=== PATIENT | female | born 1985 | race African-American/Black ===

== ENCOUNTER 2025-01-30 10:24 | Outpatient (CLI) | payer OTHER, SELFPAY ==
--- NOTE | ~2025-01-30 | XR_ITS ---
XR hand RT 2V 01/30/2025 11:15 Indication: Lupus. Glomerular disease. Procedure: 2 views right hand Comparison: No prior studies for comparison. Findings: There is anatomic alignment of the right hand. There is a foreign body along the ventral so ft tissues of the third middle phalanx. No fracture or traumatic malalignment. No erosive changes. Impression: 1: Small foreign body ventral soft tissues right third middle phalanx. Reviewed, dictated and finalized at location A. Impression: 1: Small foreign body ventral soft tissues right third middle phalanx.
--- NOTE | ~2025-01-30 | XR_ITS ---
CHEST RADIOGRAPH, PA AND LATERAL CLINICAL HISTORY: Systemic lupus erythematosus w glomerular disease . COMPARISON: None available TECHNIQUE: PA and lateral views of the chest. FINDINGS The cardiomediastinal silhouette is unremarkable. The lungs are clear. Visualized osseous structures and soft tissues are unremarkable. IMPRESSION: No focal infiltrate or effusion. Reviewed, dictated and finalized at location A.
--- NOTE | ~2025-01-30 | XR_ITS ---
XR hand LT 2V 01/30/2025 11:15 INDICATION: Left hand pain PROCEDURE: 2 views left hand COMPARISON: No prior studies for comparison. FINDINGS: Fracture, dislocation or subluxation is not identified. The soft tissues appear within norm al limits. There is a small radiodensity along the ventral aspect of the second distal phalanx on the lateral view, compatible with foreign body. IMPRESSION: 1: Small foreign body involving the soft tissues ventral to the second distal phalanx seen on lateral view. Reviewed, dictated and finalized at location A. IMPRESSION: 1: Small foreign body involving the soft tissues ventral to the second distal p halanx seen on lateral view.
--- NOTE | ~2025-01-30 | XR_ITS ---
XR lumbar spine 2-3V 01/30/2025 11:15 Indication: Lupus, Renal disease. Procedure: 3 views lumbar spine Comparison: No prior studies for comparison. Findings: Vertebral body heights are maintained. Pedicles intact. There is dextroscoliosis. No fractu re or traumatic malalignment. No evidence for spondylolisthesis. No significant disc narrowing. Impression: 1: Dextroscoliosis. Reviewed, dictated and finalized at location A. Impression: 1: Dextroscoliosis.
== END 2025-01-30 10:25 | disposition home or self-care (01) ==
LOC: MICIMG 10:30
PROVIDERS: PCP Physician Assistant Medical; Visit Provider Physician Assistant Medical
DX: M32.14 Glomerular disease in systemic lupus erythematosus (principal); M41.9 Scoliosis, unspecified; M79.5 Residual foreign body in soft tissue
CPT/HCPCS: 71046; 72100; 73120

== ENCOUNTER 2025-01-30 11:00 | Emergency (ER) | payer OTHER, SELFPAY ==
[2025-01-30] VITALS (7 sets, daily range): BP systolic 103–120; BP diastolic 64–80; PULSE 74–81; RESP 17–18; TEMP 36.9–37.1; O2SAT 98–100
--- OUTSIDE RECORDS SUMMARY | 2025-01-30 11:02 | XMS_ITS ---
Author Organization [facility] Address [address] [place], [place] [id number] Care Team Providers Care Investor Name Role Phone PALLAVI VICTOR Primary Care Provider [phone] Zeeshan Sanchez Unavailable Unavailable Social History Sex Assigned At : Social History Observation Description Sex Assigned At Female Encounters Encounter Location Date Provider Diagnosis [facility] [address] [place], [place] [id number] 10/16/2024 PALLAVI VICTOR Plan Of Treatment No Information Progress Notes * Amanda LING LDOB:1984 (39 yo F)Acc No.[id number]:10/16/2024 Progress Notes Patient: Amanda CARR Appointment Provider: Marcella VICTOR NP :1985 A ge:38 Y S ex:Female Date:10/16/2024 Address:[address] [id number] Subjective: * Chief Complaints: * * Medical History: * Ocular Surgical History: Objective: * Vitals: Vision: Spectacle Rx: Contact Lens: Eye Examination: Special Tests: Assessment: Plan: * Treatment: Care Plan: * Problems: * Billing Information: * Visit Code: * Procedure Codes: * Electronic signature of CRICKET SAVAEG on 01/30/2025 at 11:02 AM CDT Sign off status: Pending * Appointment Provider: Marcella VICTOR NP Date: 12/17/2023 Generated for Lisa michelle/Nusrat/Jose Miguel on: 0 01/30/2025 11:02 AM CDT
--- OUTSIDE RECORDS SUMMARY | 2025-01-30 11:02 | XMS_ITS ---
Author Organization [facility] Address [address] [place] [id number] Care Team Providers Care Locksmith Name Role Phone KAYLEIGH PALLAVI Primary Care Provider Zeeshan Sanchez Unavailable Unavailable Reason For Referral Reason h/o SLE: EVAL AND [place] Diagnosis 1 Microcytic anemia (D 50.9) Diagnosis 2 Leukopenia, unspecif ied type (D72.819) [facility] Referring Provider First Name PALLAVI Referring Provider Last Name KAYLEIGH Referring Provider Speciality Family Med icine Referred Provider Specialty Emergency Me dicine General Notes Constance Lisa 2023 01:25:42 PM >Pt went to ER Referral Priority Stat REASON FOR VISIT Critical labs Social History Sex Assigned At : Social History Observation Description Sex Assigned At Female Problems Problem Type SNOMED Code ICD Code Onset Dates Problem Status W/U Status Risk Notes Problem Microcytic anemia (184056608) Microcytic anemia (D50.9) Active confirmed Problem Leukopenia (18073222) Leukopenia, unspecified type (D72.819) Active confirmed Encounters Encounter Location Date Provider Diagnosis [facility] [address] [place] [id number] 07/14/2024 PALLAVI VICTOR Microcytic anemia D5 0.9 ; Leukopenia, unspecified type D72.819 and Systemic lupus erythematosus, unspecified SLE type, unspecified organ involvement status M32.9 Assessments Encounter Date Diagnosis (ICD Code) Assessment Notes Treatment Notes Treatment Clinical Notes Section Notes 07/14/2024 Microcytic anemia (ICD-10 - D50.9) 07/14/2024 Leukopenia, unspecified type (ICD-10 - D72.819) 07/14/2024 Systemic lupus erythematosus, unspecified SLE type, unspecified organ involvement status (ICD-10 - M32.9) Plan Of Treatment Referrals Referral Date Details 07/14/2024 07/14/2024, h/o SLE: EVAL AND TX Next Appt Details Follow Up: To ER now, 911 if needed. F/U after , w papers., Reason: Outpt Rheum referral already ordered... Progress Notes * Amanda LING LDOB:1984 (38 yo F)Acc No.[id number]:07/14/2024 Patient: Amanda CARR :1985 A ge:38 Y S ex:Female Address:[address] [place] [address] , [place], [address] Subjective: * Chief Complaints: * C ritical labs * HPI: * : Lab called: Hgb 6.9, MCV low, WBC 1.64 Pt c/o persistent fatigue. Pt c/o similar issues early in dx of SLE, improved w infusions... * Medical History: * Surgical History: * Hospitalization/Major Diagno stic Procedure: * Medications: Objective: * Vitals: * Examination: G eneral Examination: GENERAL APPEARANCE: N AD, over the phone. L UNGS: ? Respirations even and unlabored. * Physical Examination: Assessment: * Assessment: 1. M icrocytic anemia - D50.9 (Primary) 2 . L eukopenia, unspecified type - D72.819 3 . S ystemic lupus erythematosus, unspecified SLE type, unspecified organ involvement status - M32.9 Plan: * Treatment: 2. L eukopenia, unspecified type Referral To:Emergency Medicine Reason:h/o SLE: EVAL AND TX * Procedure Codes: * Follow Up: T o ER now, 911 if needed. F/U after , w papers. (Reason: Outpt Rheum referral already ordered...) * true * Date: Generated for Lisa michelle/Nusrat/eTransmitting on: 0 01/30/2025 11:02 AM CDT History and Physical Notes * HPI (History of Present Illness) Category Sub-Category Detail Notes Category Not es Lab called: Hgb 6.9, MCV low, WBC 1.64 Pt c/o persistent fatigue. Pt c/o similar issues early in dx of SLE, improved w infusions... Examination Category Sub-Category Detail Notes Category Not es General Examination GENERAL APPEARANCE: NAD, over the phone LUNGS: Respirations even an d unlabored Consultation Request Notes Referral Date Referring Provider Referred Provider Not es 07/14/2024 PALLAVI VICTOR , h/o SLE: HOD[place] L AND [place]
--- OUTSIDE RECORDS SUMMARY | 2025-01-30 11:02 | XMS_ITS | Encounter Summary ---
Author Organization [facility] Address [facility] [facility] [address] Care Team Providers Care Telehealth Nurse Educator Name Role Phone Unavailable Primary Care Provider Unavailabl e Reason for Referral * Consultation (Routine) - Closed Specialty Diagnoses / Procedures Referred By Contac t Referred To Contact Rheumatology Diagnoses Systemic lupus erythematosus, unspecified SLE type, unspecified organ involvement status ([facility]) Lena Briggs PA-C [address] [place] [phone] [facility] [address] [place] [address] Referral ID Status Reason Start Date Expiration Date V isits Requested Visits Authorized [id number] Closed Specialty Services Required 09/28/2024 09/28/2025 1 1 [employer] Encounter Details Date Type Department Care Team (Latest Contact Info) Description 09/28/2024 Transcribe Orders [facility] - Centralized Scheduling [address] [place] [id number] Lena Briggs PA-C [address] [place] [phone] Systemic lupus erythematosus, unspecified SLE type, unspecified organ involvement status Social History Tobacco Use Types Packs/Day Years Used Date Smoking Tobacco: Never Assessed Sex and Gender Information Value Date Recorded Sex Assigned at Not on file Gender Identity Not on file Sexual Orientation Not on file documented as of this encounter Plan of Treatment Scheduled Referrals Name Type Priority Associated Diagnoses Order Schedule AMB REFERRAL TO RHEUMATOLOGY Outpatient Referral Routine Systemic lupus erythematosus, unspecified SLE type, unspecified organ involvement status 1 Occurrences starting 09/28/2024 until 09/28/2025 documented as of this encounter Visit Diagnoses Diagnosis Systemic lupus erythematosus, unspecified SLE type, unspecified organ involvement status (HCC)- Primary documented in this encounter
--- OUTSIDE RECORDS SUMMARY | 2025-01-30 11:02 | XMS_ITS | Clinical Summary ---
Author Organization [facility] Address [address] [facility] [place] [address] Care Team Providers Care Human Resources Officer Name Role Phone Unavailable Primary Care Provider Unavailabl e Source Comments [facility],non-owned Affiliates and Associated Physician Practices is amultiple site organization consisting of ambulatory clinics and hospital sitesin [place], [place], [place] and [place]. This disclosure is being madepursuant to the Care Everywhere program and may not contain all information available regarding this patient. 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 Pulse - - Temperature - - Respiratory Rate - - Oxygen Saturation - - Inhaled Oxygen Concentration - - Weight - - Height - - Body Mass Index - - Plan of Treatment Health Maintenance Due Date Last Done Comments PAP SMEAR 1985 HIV SCREENING 2001 HEPATITIS C SCREENING 10/20/2004 DTAP/TDAP/TD VACCINES (1 - Tdap) 2005 HEPATITIS B VACCINE (1 of 3 - 19+ 3-dose series) 2005 COVID-19 VACCINE ( - 2023-2 5 season) 2024 INFLUENZA VACCINE (#1) 2024 DEPRESSION SCREENING 11/04/2024 ZOSTER VACCINE (1 of 2) 2036 HIB VACCINE Aged Out No longer eligi ble based on patient's age to complete this topic HPV VACCINE Aged Out No longer eligi ble based on patient's age to complete this topic MENINGOCOCCAL (Group B) VACC INE SHARED DECISION-MAKING Aged Out No longer eligibl e based on patient's age to complete this topic MENINGOCOCCAL GROUPS A/C/Y/W VACCINE Aged Out No longer eligible b ased on patient's age to complete this topic PNEUMOCOCCAL VACCINE Aged Out No long er eligible based on patient's age to complete this topic Guarantor Name Account Type Relation to Patient Date of Phone Billing Address SHANICE LING Personal/Famil y 1985 [facility], [address] [place] [address]
--- OUTSIDE RECORDS SUMMARY | 2025-01-30 11:03 | XMS_ITS | Patient Health Record ---
Author Organization [facility] Address [address] [place], [place] [address] Care Team Providers Care Electric Appliance Installer Name Role Phone MARY VICTOR Primary Care Provider [phone] Zeeshan Betancourt Unavailable Unavailable Zeeshan Betancourt Unavailable [phone] Allergies Allergen (clinical drug ingredient) Drug/Non Drug Allergy documented on EMR Reaction Allergy Type Onset Date Status Roche Peppers (uncoded) Unknown Allergy Active Mushrooms (uncoded) Unknown Allergy Active Pinapples (uncoded) Unknown Allergy Active Results Component Value Reference Range Notes CBC (H/H, RBC, INDICES, WBC, PLT) Reviewed date:08/23/2024 08:50:24 PM Interpretation: Performing Lab: [facility], [address] [place] [id number], Phone - [phone] Notes/Report: Testing performed at: [] [address], [address], , Tunnel Elastic Operator Lockstitch: Titi Guillaume, PhD Critical Result called to dr ayala on 07/15/2024 9:30 AM by Refugio Valle. Results were read back to caller. (WBC, Hemoglobin) WBC 1.8 3.4-10.8 x10E3/uL RBC 3.12 3.77-5.28 x10E6/uL Few tear drops. Hemoglobin 6.9 11.1-15.9 g/dL Hematocrit 24.9 34.0-46.6 % MCV 80 79-97 fL MCH 22.1 26.6-33.0 pg MCHC 27.7 31.5-35.7 g/dL RDW 18.0 11.7-15.4 % Platelets 151 150-450 x10E3/uL Neutrophils 46 Not Estab. % Lymphs 36 Not Estab. % Monocytes 15 Not Estab. % Eos 1 Not Estab. % Basos 1 Not Estab. % Neutrophils (Absolute) 0.8 1.4-7.0 x10E3/uL Lymphs (Absolute) 0.6 0.7-3.1 x10E3/uL Monocytes(Absolute) 0.3 0.1-0.9 x10E3/uL Eos (Absolute) 0.0 0.0-0.4 x10E3/uL Baso (Absolute) 0.0 0.0-0.2 x10E3/uL Immature Granulocytes 1 Not Estab. % Immature Grans (Abs) 0.0 0.0-0.1 x10E3/uL Hematology Comments: Note: Verifie d by microscopic examination. CBC W/AUTO DIFF Reviewed date:08/23/2024 08:49:33 PM Interpretation: Performing Lab:[facility], [facility] ([facility]), [address] [place], [place] [id number], Phone - [phone] Notes/Report: scan slide preliminary report Critical Result called to dr betancourt on 07/14/2024 10:45 AM by Refugio Valle. Results were read back to caller. verified by repeat analysis. (WBC, HGB, HCT) Test Performed at [facility], [address], [place] [address]. x2231. Business Affairs Manager: Taya Deloen MD. CLIA# [id number] This order was split into 3 orders: [id number] (Lipid Profile,CBC W/AUTO DIFF ,CMP), [id number] (Urinalysis w/ Microscopy), [id number] (MICROALBUMIN, RANDOM URINE (W/CREA),C-REACTIVE PROTEIN,DANETTE SCR, IFA W/REFL TITER/ PATTERN/LUPUS PNL 1,C3, C4, COMPLEMENT CH50) White blood cell count 1.64 3.80-10.80 K/uL Red blood cell count 3.03 3.80-5.10 M/uL Hemoglobin 6.9 11.7-15.5 g/dL Hematocrit 23.0 35.0-45.0 % Mean Cell Volume 76 80-100 fL Mean Corpuscular Hemoglobin 22.8 27.0-33.0 pg Mean Corpuscular Hemoglobin Concentration 30.0 32.0-36.0 % Red Cell Distribution Width 19.1 11.0-15.0 % Platelet Count 136 130-400 K/uL Mean Platelet Volume 11.6 7.4-11.5 fL Neutrophil # 0.8 2.0-6.9 K/uL Lymphocyte # 0.6 0.6-3.4 K/uL Monocyte # 0.3 0.0-0.9 K/uL Eosinophil # 0.01 0.00-0.70 K/uL Basophil # 0.010 0.000-0.200 K/uL Neutrophil % 47.5 37.0-80.0 % Lymphocyte% 34.8 10.0-50.0 % Monocyte % 15.9 0.0-12.0 % Eosinophil % 0.6 0.0-10.0 % Basophil % 0.6 0.0-3.0 % CMP Reviewed date:08/23/2024 08:50:58 PM Interpretation: [facility] [address], [place] [id number], Phone - [phone] Notes/Report: Test Performed at [facility], [address], [place] [address]. x2231. Business Affairs Manager: Taya Deleon MD. CLIA# [id number] This order was split into 3 orders: [id number] (Lipid Profile,CBC W/AUTO DIFF ,CMP), [id number] (Urinalysis w/ Microscopy), [id number] (MICROALBUMIN, RANDOM URINE (W/CREA),C-REACTIVE PROTEIN,DANETTE SCR, IFA W/REFL TITER/ PATTERN/LUPUS PNL 1,C3, C4, COMPLEMENT CH50) Test Performed at [facility], [address], [place] [address]. x2231. Business Affairs Manager: Taya Deleon MD. CLIA# [id number] Test Performed at [facility], [address], [place] [address]. x2231. Business Affairs Manager: Taya Deleon MD. CLIA# [id number] Lactate Dehydrogenase 196 125-250 U/L Carbon Dioxide Alinity 16 20-31 mmol/L Albumin Alinity 3.9 3.2-5.4 g/dL Alkaline Phosphatase Alinity 78 40-125 U/L Alanine Aminotransferase Alinity 10 0-72 U/L Aspartate Aminotransferase Alinity 18 5-34 U/L Calcium Alinity 8.5 8.4-10.6 mg/dL Chloride Alinity 113 95-107 mmol/L Creatinine Alinity 1.14 0.70-1.25 mg/dL Glucose Alinity 78 55-110 mg/dL Urea Nitrogen Alinity 10.0 6.0-25.0 mg/dL Total Protein Alinity 8.1 5.8-8.5 g/dL GLOBULIN Alinity 4.20 1.50-4.50 Sodium Alinity 139 136-145 mmol/L Potassium Alinity 3.6 3.6-5.1 mmol/L BUN/CREAT RATIO Alinity 8.77 5.00-20.00 EGFR-AA Alinity 65 59-120 120ml/min/1.73m2 EGFR Alinity 54 59-120 120ml/min/1.73m2 Non Total Bilirubin Alinity 0.5 0.1-12.0 mg/dL Urinalysis w/ Microscopy Reviewed date:08/21/2024 01:28:23 PM Interpretation: Performing Lab:[facility], [facility] ([facility]), [address] [place], [place] [id number], Phone - [phone] Notes/Report: Test Performed at [facility], [address], [place] [address]. x2231. Business Affairs Manager: Taya Deleon MD. CLIA# [id number] This order was split into 3 orders: [id number] (Lipid Profile,CBC W/AUTO DIFF ,CMP), [id number] (Urinalysis w/ Microscopy), [id number] (MICROALBUMIN, RANDOM URINE (W/CREA),C-REACTIVE PROTEIN,DANETTE SCR, IFA W/REFL TITER/ PATTERN/LUPUS PNL 1,C3, C4, COMPLEMENT CH50) Urine Color Yellow Colorless;Yellow ;Light Yellow;Dark Yellow;Mary Urine Clarity Clear Clear;Hazy Urine pH 6.5 5.0;5.5;6.0;6.5; 7.0;7. 5 Urine Glucose Negative Negative Urine Bilirubin Negative Negative Urine Ketones Negative Negative Urine Blood Negative Negative Urine Protein Trace Negative Urine Urobilinogen Normal Normal;3.2 um ol/L;16 umol/L Urine Nitrite Negative Negative Urine Leukocytes Negative Negative Urine WBC 3-5 0-3;3-5 Urine Epithelial Cells Mod. Negative;0 Urine Bacteria Occ. Negative;0;None Seen Trichomonas, Wet Prep Negative Negative Urine Specific [place] 1.020 1.010;1.0 15;1.020;1.02 5;>=1.030 C-REACTIVE PROTEIN Reviewed date:08/21/2024 01:28:37 PM Interpretation: Performing Lab:[facility], [address] [facility] [address], [place], [place] [address], Phone - [phone] Notes/Report: TESTING PERFORMED AT: [] [facility], [address] [place] [address], [address], PHONE: [phone], SUPERVISOR BUFFING AND PASTING: TITI GUILLAUME, PHD This order was split into 3 orders: [id number] (Lipid Profile,CBC W/AUTO DIFF ,CMP), [id number] (Urinalysis w/ Microscopy), [id number] (MICROALBUMIN, RANDOM URINE (W/CREA),C-REACTIVE PROTEIN,DANETTE SCR, IFA W/REFL TITER/ PATTERN/LUPUS PNL 1,C3, C4, COMPLEMENT CH50) C-REACTIVE PROTEIN, QUANT <1 0-10 MG/L C3, C4, COMPLEMENT CH50 Reviewed date:08/23/2024 08:49:40 PM Interpretation: Performing Lab:[facility], [address], [place], [place] [address], Phone - [phone] Notes/Report: TESTING PERFORMED AT: [] [address], [address], PHONE: [phone], SUPERVISOR BUFFING AND PASTING: TITI GUILLAUME, PHD This order was split into 3 orders: [id number] (Lipid Profile,CBC W/AUTO DIFF ,CMP), [id number] (Urinalysis w/ Microscopy), [id number] (MICROALBUMIN, RANDOM URINE (W/CREA),C-REACTIVE PROTEIN,DANETTE SCR, IFA W/REFL TITER/ PATTERN/LUPUS PNL 1,C3, C4, COMPLEMENT CH50) COMPLEMENT C3, SERUM 57 82-167 MG/DL COMPLEMENT C4, SERUM 7 12-38 MG/DL COMPLEMENT, TOTAL (CH50) 19 >41 U/ML AGE MALE FEMALE 1 - 30 DAYS NOT ESTAB. NOT ESTAB. 31 DAYS - 6 MONTHS >32 >20 7 MONTHS - 17 YEARS >39 >39 >17 YEARS >41 >41 NOTE: THE ADULT ( >17 YEARS ) REFERENCE INTERVAL RANGE IS USED TO FLAG ABNORMALS ON THIS REPORT. IF THE PATIENT IS 17 YEARS OLD OR YOUNGER, USE THE TABLE ABOVE TO DETERMINE OUT OF RANGE VALUES. MICROALBUMIN, RANDOM URINE ( W/CREA) Reviewed date:08/21/2024 01:28:11 PM Interpretation: Performing Lab:[facility], [address] [facility] [place], [place] [id number], Phone - [phone] Notes/Report: TESTING PERFORMED AT: [] [address], [address], PHONE: [phone], SUPERVISOR BUFFING AND PASTING: TITI GUILLAUME, PHD This order was split into 3 orders: [id number] (Lipid Profile,CBC W/AUTO DIFF ,CMP), [id number] (Urinalysis w/ Microscopy), [id number] (MICROALBUMIN, RANDOM URINE (W/CREA),C-REACTIVE PROTEIN,DANETTE SCR, IFA W/REFL TITER/ PATTERN/LUPUS PNL 1,C3, C4, COMPLEMENT CH50) CREATININE, URINE 130.0 NOT ESTAB. MG/DL ALBUMIN, URINE 68.5 NOT ESTAB. UG/ML ALB/CREAT RATIO 53 0-29 MG/G CREAT NORMAL: 0 - 29 MODERATELY INCREASED: 30 - 300 SEVERELY INCREASED: >300 DANETTE SCR, IFA W/REFL TITER/ P ATTERN/LUPUS PNL 1 Reviewed date:08/23/2024 08:49:48 PM Interpretation: Performing Lab:[facility], [address] [facility] [address], [place], [place] [address], Phone - [phone] Notes/Report: TESTING PERFORMED AT: [] [facility], [address] [place], [address], PHONE: [phone], SUPERVISOR BUFFING AND PASTING: TITI GUILLAUME, PHD This order was split into 3 orders: [id number] (Lipid Profile,CBC W/AUTO DIFF ,CMP), [id number] (Urinalysis w/ Microscopy), [id number] (MICROALBUMIN, RANDOM URINE (W/CREA),C-REACTIVE PROTEIN,DANETTE SCR, IFA W/REFL TITER/ PATTERN/LUPUS PNL 1,C3, C4, COMPLEMENT CH50) DANETTE DIRECT POSITIVE NEGATIVE ANTI-DNA (DS) AB QN 1 0-9 IU/ML NEGATIVE <5 EQUIVOCAL 5 - 9 POSITIVE >9 MCKEON ANTIBODIES <0.2 0.0-0.9 AI ANTICHROMATIN ANTIBODIES 2.7 0.0-0.9 AI Lipid Profile Reviewed date:08/21/2024 01:29:02 PM Interpretation: Performing Lab:[facility] ([facility]), [address] [place], [place] [id number], Phone - [phone] Notes/Report: Test Performed at [facility], [address], [place] [address]. x2231. Business Affairs Manager: Taya Deleon MD. CLIA# [id number] This order was split into 3 orders: [id number] (Lipid Profile,CBC W/AUTO DIFF ,CMP), [id number] (Urinalysis w/ Microscopy), [id number] (MICROALBUMIN, RANDOM URINE (W/CREA),C-REACTIVE PROTEIN,DANETTE SCR, IFA W/REFL TITER/ PATTERN/LUPUS PNL 1,C3, C4, COMPLEMENT CH50) Test Performed at [facility], [address], [place] [address]. x2231. Business Affairs Manager: Taya Deleon MD. CLIA# [id number] Test Performed at [facility], [address], [place] [address]. x2231. Business Affairs Manager: Taya Deleon MD. CLIA# [id number] Direct LDL Cholesterol 76.00 60.00-130.00 mg/dl Cholesterol Alinity 123 100-195 mg/dL ULTRA HIGH DENSITY LIPOPTOTE IN Alinity 33 36-76 mg/dL CHOL/UHDL RATIO Alinity 3.73 0.00-4.90 Triglycerides Alinity 131 40-136 mg/dL Reason For Referral Reason Pt new to [place], off of infusions-- sx flaring: eval and tx Diagnosis 1 Systemic lupus eryth ematosus, unspecified SLE type, unspecified organ involvement status (M32.9) Diagnosis 2 Discoid lupus (L93.0 ) Diagnosis 3 Proteinuria, unspeci fied type (R80.9) Diagnosis 4 Polyarthritis (M13.0 ) Referral Organization [facility] Referring Provider First Name Zeeshan Referring Provider Last Name Daniel Referring Provider Speciality Internal M edicine Referred Organization [facility] Referred Address [address] [place], [place], Referred Provider Specialty Rheumatology General Notes Constance Lisa 2023 09:26:31 AM >Faxed rheuma refer w notes to [facility] @ [phone] and [facility] [phone] will contact pt w appt.Sloan Emma 07/14/2024 09:27:02 AM >Left pt a VM.Sloan Emma 07/16/2024 03:28:22 PM >pt appt 10/27/24 @ 8:30 , pt is aware per Sloan SHELDON Emma 07/29/2024 09:19:12 AM >Pt was given [facility] direct number [phone] Referral Priority Urgent Reason eval and tx: CHW, BH C, etc. Diagnosis 1 Polyarthritis (M13.0 ) Diagnosis 2 Systemic lupus eryth ematosus, unspecified SLE type, unspecified organ involvement status (M32.9) Diagnosis 3 Other social stresso r (Z65.9) Referral Organization [facility] Referring Provider First Name Zeeshan Referring Provider Last Name Daniel Referring Provider Speciality Internal M edicine Referred Organization [facility] Referred Address [address],[place], [place] Referred Provider Specialty Behavioral H ealt Bank Examiner General Notes Constance Lisa 2023 08:16:21 AM >Left pt a VM., Sloan Constance 07/20/2024 08:26:56 AM >Unable to reach pt, Constance Lisa 07/21/2024 09:31:37 AM >nable to reach pt, left 3 VM., Constance Lisa 07/29/2024 09:18:31 AM >Pt returned call and was transferred to appt line at [facility] to schedule appt. Referral Priority Routine Reason h/o SLE: EVAL AND TX Diagnosis 1 Microcytic anemia (D 50.9) Diagnosis 2 Leukopenia, unspecif ied type (D72.819) Referral Organization [facility] Referring Provider First Name MARY Referring Provider Last Name KAYLEIGH Referring Provider Speciality Family Med natan Referred Provider Specialty Emergency Ut dicine General Notes Constance Lisa 2023 01:25:42 PM >Pt went to ER Referral Priority Stat Medications Medication SIG (Take, Route, Frequency, Duration) Notes Start Date End Date Status Mycophenolate Mofetil 500 MG 1 tablet Orally Twice a day. F/U w Rheumatology. for 90 days Active Hydroxychloroquine Sulfate 200 MG 1 tab, as directed, Orally BID. F/U w Rheumatology for 90 days Active B12 1/ day OTC. Active Social History Tobacco Use: Social History Observation Description Date Details (start date - stop date) Never Smoker NA - NA Sex Assigned At : Social History Observation Description Sex Assigned At Female Tobacco Control (Standard) Question Answer Notes Tobacco use: Nonsmoker AUDIT-C (Standard) Question Answer Notes Did you have a drink contain ing alcohol in the past year? Yes How often did you have six o r more drinks on one occasion in the past year? Less than monthly (1 point) How many drinks did you have on a typical day when you were drinking in the past year? 1 or 2 drinks (0 point) How often did you have a dri nk containing alcohol in the past year? Never (0 point) Points 1 Interpretation Negative Problems Problem Type SNOMED Code ICD Code Onset Dates Problem Status W/U Status Risk Notes Problem 11149825 Polyarthritis (M13.0) Active confirmed Problem Microcytic anemia (889102624) Microcytic anemia (D50.9) Active confirmed Problem Leukopenia (58851462) Leukopenia, unspecified type (D72.819) Active confirmed Problem 2157031 Non-smoker (Z78.9) Active confirmed Problem 01344711 Proteinuria, unspecified type (R80.9) Active confirmed Problem 52592994 Systemic lupus erythematosus, unspecified SLE type, unspecified organ involvement status (M32.9) Active confirmed Problem 061682749 Discoid lupus (L93.0) Active confirmed Vital Signs Heart Rate 90 /min 07/14/2024 New female pt h ere requesting referral for rhuematology. Hx of Lupus. Voiced no concerns at this time. Unable to obtain O2sat...TRANDLE/RMA Temperature 98.2 degrees Fahrenheit 07/14/2024 New female pt here requestin g referral for rhuematology. Hx of Lupus. Voiced no concerns at this time. Unable to obtain O2sat...TRANDLE/RMA Respiratory Rate 20 /min 07/14/2024 New female pt here requesting referral for rhuematology. Hx of Lupus. Voiced no concerns at this time. Unable to obtain O2sat...TRANDLE/RMA Blood pressure diastolic 76 mm Hg 07/14/2024 New female pt here r equesting referral for rhuematology. Hx of Lupus. Voiced no concerns at this time. Unable to obtain O2sat...TRANDLE/RMA Weight-kg 71.21 kg 07/14/2024 New female pt h ere requesting referral for rhuematology. Hx of Lupus. Voiced no concerns at this time. Unable to obtain O2sat...TRANDLE/RMA Height 65 in 07/14/2024 New female pt h ere requesting referral for rhuematology. Hx of Lupus. Voiced no concerns at this time. Unable to obtain O2sat...TRANDLE/RMA Blood pressure systolic 113 mm Hg 07/14/2024 New female pt here requesting referral for rhuematology. Hx of Lupus. Voiced no concerns at this time. Unable to obtain O2sat...TRANDLE/RMA Weight 157 lbs 07/14/2024 New female pt h ere requesting referral for rhuematology. Hx of Lupus. Voiced no concerns at this time. Unable to obtain O2sat...TRANDLE/RMA BMI 26.12 kg/m2 07/14/2024 New female pt h ere requesting referral for rhuematology. Hx of Lupus. Voiced no concerns at this time. Unable to obtain O2sat...TRANDLE/RMA Encounters Encounter Location Date Provider Diagnosis [place] [address] [place], [place] [id number] 07/14/2024 Zeeshan Betancourt Systemic lupus erythematosus, unspecified SLE type, unspecified organ involvement status M32.9 ; Discoid lupus L93.0 ; Proteinuria, unspecified type R80.9 ; Encounter for other general examination Z00.8 ; Polyarthritis M13.0 and Non-smoker Z78.[address] [place] [address] [place], [place] [phone] 07/14/2024 MARY VICTOR [place] [address] [place], [place] [phone] 07/14/2024 MARY VICTOR Microcytic anemia D5 0.9 ; Leukopenia, [...] unspecified organ involvement status (ICD-10 - M32.9) 07/14/2024 Discoid lupus (ICD-10 - L93.0) 07/14/2024 Proteinuria, unspecified type (ICD-10 - R80.9) 07/14/2024 Systemic lupus erythematosus, unspecified SLE type, unspecified organ involvement status (ICD-10 - M32.9) 07/14/2024 Encounter for other general examination (ICD-10 - Z00.8) 07/14/2024 Polyarthritis (ICD-10 - M13.0) 07/14/2024 Non-smoker (ICD-10 - Z78.9) Plan Of Treatment No Information Insurance Providers Payer Name Payer Address Payer Phone Subscriber Number Group Number Insured Name Patient Relationship to Insured Coverage Start Date Coverage End Date [employer] [address] [address] [place] [address] [id number] Amanda Felton Self - patient is the insured 2021 Medical (General) History Medical History History ICD Code SLE Surgical History Surgery Date(Month/Year) C-sxn x3 Hospitalization History Reason Date(Month/Year) See PSH.
--- OUTSIDE RECORDS SUMMARY | 2025-01-30 11:03 | XMS_ITS ---
Author Organization [facility] Address [address] [place], [place] [id number] Care Team Providers Care Credentialing Assistant Name Role Phone PALLAVI VICTOR Primary Care Provider [phone] Zeeshan Sanchez Unavailable Unavailable REASON FOR VISIT Release of Health Information Social History Sex Assigned At : Social History Observation Description Sex Assigned At Female Encounters Encounter Location Date Provider Diagnosis [facility] [address] [place], [place] [phone] 07/14/2024 PALLAVI VICTOR Plan Of Treatment No Information Progress Notes * Amanda LING LDOB:1984 (38 yo F)Acc No.[id number]:07/14/2024 Patient: Amanda CARR :1985 A ge:38 Y S ex:Female Address:[address], [place], [address] * true * Date: Generated for Printi ng/Faxing/eTransmitting on: 0 01/30/2025 11:02 AM CDT
--- OUTSIDE RECORDS SUMMARY | 2025-01-30 11:03 | XMS_ITS | Clinical Summary ---
Author Organization [facility] at the [facility] Office Center Address [address] [place] [address] Care Team Providers Care Sports Reporter Name Role Phone Lena Briggs Primary Care Provider Devin Garcia MD Unavailable [phone] Allergies No known active allergies Medications mycophenolate mofetil (CELLCEPT) 500 mg tablet Take 3 tablets (1,500 mg total) by mouth 2 (two) times a day 4 Active folic acid (FOLVITE) 1 mg tablet TAKE 1 TABLET (1 MG TOTAL) BY MOUTH IN THE MORNING Active hydroxychloroquine (PLAQUENIL) 200 mg tabletIndications: Systemic Lupus Erythematosus Take 1 tablet (200 mg total) by mouth 2 (two) times a day 180 tablet 1 4 Active anifrolumab-fnia (Saphnelo) 300 mg/2 mL (150 mg/mL) solution Infuse 2 mL (300 mg total) into a venous catheter every 28 (twenty-eight ) days 4 Active Active Problems Problem Noted Date Diagnosed Date Raynaud's disease with gangrene 09/03/2024 Alopecia 09/03/2024 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 +anti-ro60 60. +RF >200. +anti- pspt. Equivocal B2gp1 IgA. +CB-CAPS. Low C3 (54) and C4 (6.5). HCQ 328 subtherapeutic. Restarted Saphnelo 09/21/24 Assessment & Plan (09/03/2024 4:32 PM CDT): 38yoAAF establishing care with us with previous diagnosis of SLE, sjogren's, and RA. Has had variable serologies including +DANETTE, dsdna, chromatin ab, and RF per review of outside records. 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 Other clinical features include arthralgias/arthritis, oral ulcers, alopecia with scarring, photosensitivity, malar rash, pleuritic chest pain, cytopenias. Pt reports that she improved and was stable for about 2 years on a regimen of hcq 200mg BID, cellcept 1500mg BID, and Saphnelo. Previously tried Benlysta but did not achieve a good clinical response. Has not had Saphnelo in about 5 months since moving back to the [facility] from [place]. Having increased fatigue, rashes, arthralgias, lymphadenopathy, dyspnea, raynauds, mouth sores, and brain fog. Also having loose stools. Will get a few additional labs, imaging (xrays of hands, chest, spine) and u/s of R hand. Continue hcq 200mg BID and cellcept 1500mg BID. Will try to get Saphnelo restarted ALFONSO, either at our office or can be arranged at [facility]. 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 Consider checking for G6PD deficiency next. Continue yearly eye exams on HCQ. Added HCQ level to AVISE to see if in therapeutic range. Seen with Dr. Garcia. F/u 2 weeks Dyspnea 09/03/2024 Weight loss 09/03/2024 Fatigue 03/14/2020 Assessment & Plan (03/14/2020 12:19 PM CDT): Order labs: CBC, vitamin b12, iron level, CMP Skin cyst 03/14/2020 Assessment & Plan (03/14/2020 12:20 PM CDT): Likely inflamed cyst Order cefdinir Skin abnormalities 10/08/2019 Assessment & Plan (10/21/2019 4:58 PM FLAG CAR DRIVER): Refer to dermatology Anemia 09/28/2019 Assessment & Plan (03/14/2020 12:19 PM CDT): Recheck CBC, iron level Cont ferrous sulfate Assessment & Plan (10/21/2019 4:58 PM FLAG CAR DRIVER): Monitor Cont iron sulfate Assessment & Plan (10/06/2019 4:39 PM FLAG CAR DRIVER): Start iron sulfate Check iron levles Refer to GI Pain in both hands 09/07/2019 Assessment & Plan (10/06/2019 4:39 PM FLAG CAR DRIVER): Order EMG Assessment & Plan (09/07/2019 1:22 PM FLAG CAR DRIVER): Check labs to r/o connective tissue d/o Check arterial blood flow Possibly raynaud's Bilateral hand numbness 09/07/2019 Assessment & Plan (10/06/2019 4:39 PM FLAG CAR DRIVER): Order EMG Assessment & Plan (09/07/2019 1:22 PM FLAG CAR DRIVER): Check labs to r/o connective tissue d/o Check arterial blood flow Possibly raynaud's Changes in skin texture 09/07/2019 Assessment & Plan (09/07/2019 1:23 PM FLAG CAR DRIVER): Refer to derm Encounters Date Type Department Care Team Description 01/27/[address] [id number] Brittny Bowen from Last 3 Months Surgical History Surgery Date Site/Laterality Comments SECTION Medical History Medical History Date Comments Anemia Family History Medical History Relation Name Comments No Known Problems Brother 1 No Known Problems Brother 2 No Known Problems Daughter Heart disease Father Ataxia Mother No Known Problems Sister No Known Problems Son 1 Relation Name Status Comments Brother 1 Alive Brother 2 Alive Daughter Alive Father Alive Mother Alive Sister Alive Son 1 Alive Son 2 Alive Social History Tobacco Use Types Packs/Day Years Used Date Smoking Tobacco: Never Smokeless Tobacco: Never Alcohol Use Standard Drinks/Week Comments Yes 0 (1 standard drink = 0.6 oz pur e alcohol) Comments Unknown Sex and Gender Information Value Date Recorded Sex Assigned at Not on file Legal Sex Female 7:56 PM FLAG CAR DRIVER Gender Identity Not on file Sexual Orientation Straight 03/17/2020 12 :14 AM CDT Obstetrics History Last Filed Vital Signs Vital Sign Reading Time Taken Comments Blood Pressure 122/80 09/03/2024 2:14 PM CDT Pulse 92 10/08/2019 11:22 AM FLAG CAR DRIVER Temperature 36.7 C (98 F) 10/08/2019 11:22 AM FLAG CAR DRIVER Respiratory Rate 18 10/08/2019 11:22 AM FLAG CAR DRIVER Oxygen Saturation 100% 10/08/2019 11:22 AM FLAG CAR DRIVER Inhaled Oxygen Concentration - - Weight 72.1 kg (159 lb) 09/03/2024 2:14 PM CDT Height 165.1 cm (5' 5 ) 09/03/2024 2:14 PM CDT Body Mass Index 26.46 09/03/2024 2:14 PM CDT Plan of Treatment Health Maintenance Due Date Last Done Comments Cervical Cancer Screening 1986 Depression Screening 1986 Hepatitis C Screening 1986 Varicella Vaccines (1 of 2 - 13+ 2-dose series) 1999 Regular Well Visit/Exam 18-64 2004 Pneumococcal vaccine <65 (1 of 2 - PCV) 2005 Zoster Vaccine (1 of 2) 2005 Influenza Vaccine (#1) 2024 DTaP/Tdap/Td Vaccine (10 - Td or Tdap) 11/27/2024 11/27/2014, 11/27/2014, 09/03/2013, Additional history exists Hepatitis B Screening Completed 10/13/1999 , 09/08/1998, 06/10/1997 HPV Vaccines Aged Out No longer eligi ble based on patient's age to complete this topic Insurance [facility] CHOICE PLUS [employer] HMO [facility] Care Teams Sports Reporter Relationship Specialty Start Date End Date Lena Briggs PA [facility] [place] [address] PCP - General Physician Maintenance Mechanic Telephone 08/13/24 Devin Garcia MD [address] [place] [address] Consulting Physician Rheumatology 08/13/24
--- OUTSIDE RECORDS SUMMARY | 2025-01-30 11:03 | XMS_ITS | Referral Summary ---
Author Organization [facility] at the [facility] Office Center Address [address] [place] [address] Care Team Providers Care Marketing Information Analyst Name Role Phone Lena Briggs Primary Care Provider [phone] Devin Garcia MD Unavailable [phone] Encounters Date Type Department Care Team Description 01/27/[address] [phone] Brittny Bowen from Last 3 Months Allergies No known active allergies Medications mycophenolate [...] with glomerular dis ease 09/03/2024 Overview (10/05/2024): JONOSE 09/27: +DANETTE 1:160 speckled, >150 ZAC. +anti-ro60 [...] 5 months since moving back to the [place] area from [place]. Having increased fatigue, rashes, arthralgias, lymphadenopathy, dyspnea, raynauds, mouth sores, and brain fog. Also having loose stools. Will get a few additional labs, imaging (xrays of hands, chest, spine) and u/s of R hand. Continue hcq 200mg BID and cellcept 1500mg BID. Will try to get Saphnelo restarted ALFONSO, either at our office or can be arranged at [facility]. In light of hemosiderosis on [...] 10/08/2019 Assessment & Plan (10/21/2019 4:58 PM TRADES HELPER): Refer to dermatology Anemia 09/28/2019 Assessment & Plan (03/14/2020 12:19 PM CDT): Recheck CBC, iron level Cont ferrous sulfate Assessment & Plan (10/21/2019 4:58 PM TRADES HELPER): Monitor Cont iron sulfate Assessment & Plan (10/06/2019 4:39 PM TRADES HELPER): Start iron sulfate Check iron levles Refer to GI Pain in both hands 09/07/2019 Assessment & Plan (10/06/2019 4:39 PM TRADES HELPER): Order EMG Assessment & Plan (09/07/2019 1:22 PM TRADES HELPER): Check labs to r/o connective tissue d/o Check arterial blood flow Possibly raynaud's Bilateral hand numbness 09/07/2019 Assessment & Plan (10/06/2019 4:39 PM TRADES HELPER): Order EMG Assessment & Plan (09/07/2019 1:22 PM TRADES HELPER): Check labs to r/o connective tissue d/o Check arterial blood flow Possibly raynaud's Changes in skin texture 09/07/2019 Assessment & Plan (09/07/2019 1:23 PM TRADES HELPER): Refer to derm Social History Tobacco Use Types Packs/Day Years Used Date Smoking Tobacco: Never Smokeless Tobacco: Never Alcohol Use Standard Drinks/Week Comments Yes 0 (1 standard drink = 0.6 oz pur e alcohol) Comments Unknown Sex and Gender Information Value Date Recorded Sex Assigned at Not on file Legal Sex Female 7:56 PM TRADES HELPER Gender Identity Not on file Sexual Orientation Straight 03/17/2020 12 :14 AM CDT Last Filed Vital Signs Vital Sign Reading Time Taken Comments Blood Pressure 122/80 09/03/2024 2:14 PM CDT Pulse 92 10/08/2019 11:22 AM TRADES HELPER Temperature 36.7 C (98 F) 10/08/2019 11:22 AM TRADES HELPER Respiratory Rate 18 10/08/2019 11:22 AM TRADES HELPER Oxygen Saturation 100% 10/08/2019 11:22 AM TRADES HELPER Inhaled Oxygen Concentration - - Weight 72.1 kg (159 lb) 09/03/2024 2:14 PM CDT Height 165.1 cm (5' 5 ) 09/03/2024 2:14 PM CDT Body Mass Index 26.46 09/03/2024 2:14 PM CDT Plan of Treatment Not on file Insurance [facility] CHOICE PLUS AETNA [facility] Care Teams Marketing Information Analyst Relationship Specialty Start Date End Date Lena Briggs PA [address] [place] [phone] PCP - General Physician Transcribing Machine Mechanic 08/13/24 Devin Garcia MD [address] [place] [address] Consulting Physician Rheumatology 08/13/24
--- OUTSIDE RECORDS SUMMARY | 2025-01-30 14:03 | XMS_ITS | Data Portability ---
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 Plan of Treatment Reminders Order Date Submit Date Provider Last Modified By Organization Details Last Modified Time Details Appointments None recorded. Lab ferritin, serum or plasma 2022 023 KENTRELL [facility] [address], [address], 3 08:23:10 iron + total iron-bindin g capacity (TIBC), serum 2022 023 KENTRELL [facility] [address], [address], 3 08:23:06 renal function panel, serum 2022 023 KENTRELL [facility] [address], [address], 3 08:23:05 CBC w/ auto diff 2022 023 KENTRELL [facility] [address], [address], 3 08:23:03 PTH (parathyroi d hormone), intact, serum or plasma 2022 023 KENTRELL [facility], [address] [place] [address], [address], 3 08:23:11 vitamin D, 25-hydroxy, total, serum 2022 023 KENTRELL [facility] [address], [address], 3 08:23:08 microalbumi n/creatinin e, mass ratio, urine 2022 023 KENTRELL [facility], [address] [place] [address], [address], 3 08:23:07 uric acid, serum or plasma 2022 023 KENTRELL [facility], [address] [place] [address], [address], 3 08:23:09 HIV 1 + 2, meaningful use set 2021 022 KENTRELL [facility], [address] [place] [address], [address], 2 08:18:14 renal function panel, serum 2021 022 KENTRELL [facility] [address], [address], 2 08:18:13 microalbumi n/creatinin e, mass ratio, urine 2021 022 KENTRELL [facility] [address], [address], 2 08:18:14 PT/PTT, plasma 2021 022 KENTRELL [facility], [address] [place] [address], [address], 08:18:13 Referral None recorded. Procedures None recorded. Surgeries biopsy, renal, percutaneou s (SURG) 2021 022 [email or web address] 2 [facility], [address], [place], [address], 17:26:42 Imaging None recorded. Medication Orders None recorded. Patient TargetsNo targets recorded. Patient Instructions Encounter Date Encounter Id Patient Instructions Last Modified By Organization Details Last Modified Time 04/16/2022 [id number] proteinuria: car e instructions smugambi Not available 04/16/2022 14:46:55 acute kidney injury: care instructions smugambi Not available 04/16/2022 14:46:54 01/14/2023 [id number] proteinuria: car e instructions smugambi Not available 01/14/2023 14:30:42 diet for chronic kidney disease (before dialysis): care instructions smugambi Not available 01/14/2023 14:30:42 chronic kidney disease: care instructions smugambi Not available 01/14/2023 14:30:41 low sodium diet (2,000 milligram): care instructions smugambi Not available 01/14/2023 14:30:41 chronic kidney disease: care instructions smugambi Not available 01/14/2023 14:30:42 learning about chronic kidney disease smugambi Not available 01/14/2023 14:30:42 acute kidney injury: care instructions smugambi Not available 01/14/2023 14:30:41 Reason for Referral None Reported. Results Created Date Observation Date Name Description Value Unit Range Abnormal Flag Note LastModifiedBy Organization Detail LastModifiedTime 04/16/2004/17/2022 RENAL PANEL (10) glucose 72 mg/dL 65-99 Not Available [facility] ([facility]) [address], [place], [address], 04/17/2022 08:18:13 04/16/20 22 04/17/2022 RENAL PANEL (10) BUN 15 mg/dL 6-20 Not Available [facility] ([facility]) [address] [place], [address], 04/17/2022 08:18:13 04/16/20 22 04/17/2022 RENAL PANEL (10) creatinine 0.98 mg/dL 0.57-1 .00 Not Available [facility] ([facility]) [address] [place], [address], 04/17/2022 08:18:13 04/16/20 22 04/17/2022 RENAL PANEL (10) eGFR 77 mL/mi n/1.7 3 >59 Not Available [facility] ([facility]) [address] [place], [address], 04/17/2022 08:18:13 04/16/20 22 04/17/2022 RENAL PANEL (10) BUN/creatini ne ratio 15 9-23 Not Available [facility] ([facility]) [address] [place], [address], 04/17/2022 08:18:13 04/16/20 22 04/17/2022 RENAL PANEL (10) sodium 137 mmol/ L 134-14 4 Not Available [facility] ([facility]) [address] [place], [address], 04/17/2022 08:18:13 04/16/20 22 04/17/2022 RENAL PANEL (10) potassium 4.0 mmol/ L 3.5-5. 2 Not Available [facility] ([facility]) [address] [place], [address], 04/17/2022 08:18:13 04/16/20 22 04/17/2022 RENAL PANEL (10) chloride 104 mmol/ L 96-106 Not Available [facility] ([facility]) [address] [place], [address], 04/17/2022 08:18:13 04/16/20 22 04/17/2022 RENAL PANEL (10) carbon dioxide, total 16 mmol/ L 20-29 below low normal Not Available [facility] ([facility]) [address] [facility] [address], [place], [address], 04/17/2022 08:18:13 04/16/20 22 04/17/2022 RENAL PANEL (10) calcium 9.4 mg/dL 8.7-10 .2 Not Available [facility] ([facility]) [address] [facility] [place], [address], 04/17/2022 08:18:13 04/16/20 22 04/17/2022 RENAL PANEL (10) phosphorus 4.2 mg/dL 3.0-4. 3 Not Available [facility] ([facility]) [address] [facility] [address], [place], [address], 04/17/2022 08:18:13 04/16/20 22 04/17/2022 RENAL PANEL (10) albumin 4.2 g/dL 3.8-4. 8 Not Available [facility] ([facility]) [address] [place], [address], 04/17/2022 08:18:13 04/16/20 22 04/17/2022 PT AND PTT INR 0.9 0.9-1. 2 Refer ence inter denisse is for non-a ntico agula felicity patie nts. . Sugge sted INR thera peuti c range for Vitam in K antag onist thera py: Stand mattie Dose (mode rate inten sity thera peuti c range ): 2.0 - 3.0 Highe r inten sity thera peuti c range 2.5 - 3.5 Not Available [facility] ([facility]) [address] [place], [address], 04/17/2022 09:38:41 04/16/20 22 04/17/2022 PT AND PTT prothrombin time 9.9 sec 9.1-12 .0 Not Available [facility] ([facility]) [address] [facility] [address], [place], [address], 04/17/2022 09:38:41 04/16/20 22 04/17/2022 PT AND PTT APTT 22 sec 24-33 below low normal This test has not been valid ated for monit oring unfra ction ated hepar in thera py. aPTT- based thera peuti c range s for unfra ction ated hepar in thera py have not been estab maru tariq. For gener al guide lines on Hepar in monit oring , refer to the [facility] t[facility] of Archie yates. Not Available [facility] ([facility]) [address] [facility] [address], [place], [address], 04/17/2022 09:38:41 04/16/2004/17/2022 ALBUM IN/CR EAT RATIO , RANDO M UR creatinine, urine 43.0 mg/dL not estab. Not Available [facility] ([facility]) [address] [facility] [address], [place], [address], 04/17/2022 16:11:15 04/16/20 22 04/17/2022 ALBUM IN/CR EAT RATIO , RANDO M UR albumin, urine 18.3 ug/mL not estab. Not Available [facility] ([facility]) [address] [place], [address], 04/17/2022 16:11:15 04/16/20 22 04/17/2022 ALBUM IN/CR EAT RATIO , RANDO M UR alb/creat ratio 43 mg/g_ creat 0-29 above high normal Natalie l: 0 - 29 Moder ately incre ased: 30 - 300 Sever max incre ased: >300 Not Available [facility] ([facility]) [address] [place], [address], 04/17/2022 16:11:15 04/16/20 22 04/17/2022 HIV AB/P2 4 AG WITH REFLE X HIV Ab/P24 Ag screen Non Reacti ve non reacti ve HIV Negat angel HIV-1 /HIV- 2 antib odies and HIV-1 p24 antig en were NOT detec felicity. There is no labor atory evide nce of HIV infec tion. Not Available [facility] ([facility]) [address] [place], [address], 04/17/2022 16:11:16 01/15/20 23 01/15/2023 CBC WITH DIFFE RENTI AL/PL ATELE T WBC 2.8 x10e3 /uL 3.4-10 .8 below low normal Not Available [facility] ([facility]) [address] [place], [address], 01/15/2023 09:39:52 01/15/20 23 01/15/2023 CBC WITH DIFFE RENTI AL/PL ATELE T RBC 2.51 x10e6 /uL 3.77-5 .28 alert low Few tear drops . Marke d polyc hroma tophi norma. Ovalo cytes prese nt. Micro cytes prese nt. Macro cytes prese nt. Aniso cytos is prese nt. Not Available [facility] ([facility]) [address] [place], [address], 01/15/2023 09:39:52 01/15/2001/15/2023 CBC WITH DIFFE RENTI AL/PL ATELE T hemoglobin 8.1 g/dL 11.1-1 5.9 below low normal Not Available [facility] ([facility]) [address] [place], [address], 01/15/2023 09:39:52 01/15/2001/15/2023 CBC WITH DIFFE RENTI AL/PL ATELE T hematocrit 25.5 % 34.0-4 6.6 below low normal Not Available [facility] ([facility]) [address] [place], [address], 01/15/2023 09:39:52 01/15/2001/15/2023 CBC WITH DIFFE RENTI AL/PL ATELE T MCV 102 fL 79-97 above high normal Not Available [facility] ([facility]) [address] [facility] [address], [place], [address], 01/15/2023 09:39:52 01/15/2001/15/2023 CBC WITH DIFFE RENTI AL/PL ATELE T MCH 32.3 pg 26.6-3 3.0 Not Available [facility] ([facility]) [address] [place], [address], 01/15/2023 09:39:52 01/15/2001/15/2023 CBC WITH DIFFE RENTI AL/PL ATELE T MCHC 31.8 g/dL 31.5-3 5.7 Not Available [facility] ([facility]) [address] [facility] [address], [place], [address], 01/15/2023 09:39:52 01/15/2001/15/2023 CBC WITH DIFFE RENTI AL/PL ATELE T RDW 13.4 % 11.7-1 5.4 Not Available [facility] ([facility]) [address] [facility] [address], [place], [address], 01/15/2023 09:39:52 01/15/2001/15/2023 CBC WITH DIFFE RENTI AL/PL ATELE T platelets 108 x10e3 /uL 150-45 0 below low normal Plate let count verif ied by exami natreynaldo n of perip heral blood smear . Not Available [facility] ([facility]) [address] [place], [address], 01/15/2023 09:39:52 01/15/20 23 01/15/2023 CBC WITH DIFFE RENTI AL/PL ATELE T neutrophils 50 % not estab. Not Available [facility] ([facility]) [address] [facility] [address], [place], [address], 01/15/2023 09:39:52 01/15/2001/15/2023 CBC WITH DIFFE RENTI AL/PL ATELE T lymphs 31 % not estab. Not Available [facility] ([facility]) [address] [facility] [address], [place], [address], 01/15/2023 09:39:52 01/15/20 23 01/15/2023 CBC WITH DIFFE RENTI AL/PL ATELE T monocytes 18 % not estab. Not Available [facility] ([facility]) [address] [facility] [address], [place], [address], 01/15/2023 09:39:52 01/15/20 23 01/15/2023 CBC WITH DIFFE RENTI AL/PL ATELE T eos 0 % not estab. Not Available [facility] ([facility]) [address] [facility] [address], [place], [address], 01/15/2023 09:39:52 01/15/2001/15/2023 CBC WITH DIFFE RENTI AL/PL ATELE T basos 0 % not estab. Not Available [facility] ([facility]) [address] [facility] [address], [place], [address], 01/15/2023 09:39:52 01/15/2001/15/2023 CBC WITH DIFFE RENTI AL/PL ATELE T neutrophils (absolute) 1.4 x10e3 /uL 1.4-7. 0 Not Available [facility] ([facility]) [address] [facility] [address], [place], [address], 01/15/2023 09:39:52 01/15/20 23 01/15/2023 CBC WITH DIFFE RENTI AL/PL ATELE T lymphs (absolute) 0.9 x10e3 /uL 0.7-3. 1 Not Available [facility] ([facility]) [address] [facility] [address], [place], [address], 01/15/2023 09:39:52 01/15/20 23 01/15/2023 CBC WITH DIFFE RENTI AL/PL ATELE T monocytes(ab solute) 0.5 x10e3 /uL 0.1-0. 9 Not Available [facility] ([facility]) [address] [facility] [address], [place], [address], 01/15/2023 09:39:52 01/15/20 23 01/15/2023 CBC WITH DIFFE RENTI AL/PL ATELE T eos (absolute) 0.0 x10e3 /uL 0.0-0. 4 Not Available [facility] ([facility]) [address] [facility], [place], [address], 01/15/2023 09:39:52 01/15/20 23 01/15/2023 CBC WITH DIFFE RENTI AL/PL ATELE T baso (absolute) 0.0 x10e3 /uL 0.0-0. 2 Not Available [facility] ([facility]) [address] [facility], [place], [address], 01/15/2023 09:39:52 01/15/20 23 01/15/2023 CBC WITH DIFFE RENTI AL/PL ATELE T immature granulocytes 1 % not estab. Not Available [facility] ([facility]) [address] [facility], [place], [address], 01/15/2023 09:39:52 01/15/20 23 01/15/2023 CBC WITH DIFFE RENTI AL/PL ATELE T immature grans (abs) 0.0 x10e3 /uL 0.0-0. 1 Not Available [facility] ([facility]) [address] [facility] [address], [place], [address], 01/15/2023 09:39:52 01/15/20 23 01/15/2023 CBC WITH DIFFE RENTI AL/PL ATELE T hematology comments: Note: Verif ied by micro scopi c exami natio n. Not Available [facility] ([facility]) [address] [facility] [place], [address], 01/15/2023 09:39:52 01/15/2001/15/2023 RENAL PANEL (10) glucose 79 mg/dL 70-99 Not Available [facility] ([facility]) [address] [facility] [place], [address], 01/15/2023 08:23:04 01/15/20 23 01/15/2023 RENAL PANEL (10) BUN 11 mg/dL 6-20 Not Available [facility] ([facility]) [address] [facility] [place], [address], 01/15/2023 08:23:04 01/15/20 23 01/15/2023 RENAL PANEL (10) creatinine 1.09 mg/dL 0.57-1 .00 above high normal Not Available [facility] ([facility]) [address] [facility], [place], [address], 01/15/2023 08:23:04 01/15/20 23 01/15/2023 RENAL PANEL (10) eGFR 68 mL/mi n/1.7 3 >59 Not Available [facility] ([facility]) [address] [facility] [place], [address], 01/15/2023 08:23:04 01/15/20 23 01/15/2023 RENAL PANEL (10) BUN/creatini ne ratio 10 9-23 Not Available [facility] ([facility]) [address] [facility] [place], [address], 01/15/2023 08:23:04 01/15/2001/15/2023 RENAL PANEL (10) sodium 140 mmol/ L 134-14 4 Not Available [facility] ([facility]) [address] [facility] [place], [address], 01/15/2023 08:23:04 01/15/20 23 01/15/2023 RENAL PANEL (10) potassium 3.8 mmol/ L 3.5-5. 2 Not Available [facility] ([facility]) [address] [facility] [place], [address], 01/15/2023 08:23:04 01/15/20 23 01/15/2023 RENAL PANEL (10) chloride 108 mmol/ L 96-106 above high normal Not Available [facility] ([facility]) [address] [facility] [place], [address], 01/15/2023 08:23:04 01/15/20 23 01/15/2023 RENAL PANEL (10) carbon dioxide, total 14 mmol/ L 20-29 below low normal Not Available [facility] ([facility]) [address] [facility] [place], [address], 01/15/2023 08:23:04 01/15/20 23 01/15/2023 RENAL PANEL (10) calcium 8.9 mg/dL 8.7-10 .2 Not Available [facility] ([facility]) [address] [facility] [place], [address], 01/15/2023 08:23:04 01/15/20 23 01/15/2023 RENAL PANEL (10) phosphorus 4.1 mg/dL 3.0-4. 3 Not Available [facility] ([facility]) [address] [place], [address], 01/15/2023 08:23:04 01/15/2001/15/2023 RENAL PANEL (10) albumin 4.0 g/dL 3.8-4. 8 Not Available [facility] ([facility]) [address] [place], [address], 01/15/2023 08:23:04 01/15/20 23 01/15/2023 IRON AND TIBC iron bind.cap.(TI BC) 320 ug/dL 250-45 0 Not Available [facility] ([facility]) [address] [facility] [place], [address], 01/15/2023 08:23:06 01/15/20 23 01/15/2023 IRON AND TIBC UIBC 225 ug/dL 131-42 5 Not Available [facility] ([facility]) [address] [facility], [place], [address], 01/15/2023 08:23:06 01/15/20 23 01/15/2023 IRON AND TIBC iron 95 ug/dL 27-159 Not Available [facility] ([facility]) [address] [place], [address], 01/15/2023 08:23:06 01/15/20 23 01/15/2023 IRON AND TIBC iron saturation 30 % 15-55 Not Available [facility] ([facility]) [address] [place], [address], 01/15/2023 08:23:06 01/15/20 23 01/15/2023 ALBUM IN/CR EAT RATIO , JACKLYN Chambers UR creatinine, urine 194.4 mg/dL not estab. Not Available [facility] ([facility]) [address] [place], [address], 01/15/2023 16:13:30 01/15/20 23 01/15/2023 ALBUM IN/CR EAT RATIO , YANICKO M UR albumin, urine 89.4 ug/mL not estab. Not Available [facility] ([facility]) [address] [place], [address], 01/15/2023 16:13:30 01/15/20 23 01/15/2023 ALBUM IN/CR EAT RATIO , RANDO M UR alb/creat ratio 46 mg/g_ creat 0-29 above high normal Natalie l: 0 - 29 Moder ately incre ased: 30 - 300 Sever max incre ased: >300 Not Available [facility] ([facility]) [address] [place], [address], 01/15/2023 16:13:30 01/15/20 23 01/15/2023 VITAM IN D, 25-HY DROXY vitamin D, 25-hydroxy 36.6 NG/mL 30.0-1 00.0 Vitam in D defic iency has been defin ed by the Insti tute of Medic ine and an Endoc rine Socie ty pract ice guide line as a level of serum 25-OH vitam in D less than 20 ng/mL (1,2) . The Endoc rine Socie ty went on to fur er defin e vitam in D insuf ficie ncy as a level betwe en 21 and 29 ng/mL (2). 1. IOM (Inst itute of Medic ine). 2009. Dieta ry refer ence intak es for calci um and D. Esme bledsoe [place]: The [facility] Press . 2. Devon mcintyre [place], Meaghan long [place], Rojelio off-F errar i PICKENS, et al. Evalu ation , treat ment, and preve ntion of vitam in D defic iency : an Endoc rine Socie ty clini valorie pract ice guide line. JCEM. 2010; 96(7) :1911 -30. Not Available [facility] ([facility]) [address] [facility], [place], [address], 01/15/2023 08:23:08 01/15/20 23 01/15/2023 URIC ACID uric acid 6.4 mg/dL 2.6-6. 2 above high normal Kevina jose prieto t for gout patie nts: <6.0 Not Available [facility] ([facility]) [address] [facility], [place], [address], 01/15/2023 08:23:09 01/15/20 23 01/15/2023 TOÑO TIN ferritin 134 NG/mL 15-150 Not Available [facility] ([facility]) [address] [facility], [place], [address], 01/15/2023 08:23:09 01/15/20 23 01/15/2023 PTH, INTAC T PTH, intact 30 pg/mL 15-65 Not Available [facility] ([facility]) [address], [place], [address], 01/15/2023 10:38:17 07/23/20 22 07/23/2022 biops y, kidne y, ct crystal nce (PROC ) No observ ation record ed. smugambi Not Available 2021 17:15:31 Result Notes None recorded. Problems Name Problem SNOMED Code Status Onset Date Resolution Date Notes Provider Name and Address Organization Details Recorded Time Rheumatoid arthritis 69194283 Active 2021 Siriatima reyes [facility] 2 12:53:07 Lupus erythematosus 364279192 [facility] 13:17:05 Alopecia 80632297 Active 2021 [facility] 2 13:25:04 Abnormal renal function 38465736 Active 2021 SADA DHILLON [address] [place], [address] , [facility] 2 16:26:50 Acute kidney injury 52386442 Active 2021 SADA DHILLON [address] [place], [address] , [facility] 2 16:26:57 Proteinuria 99703301 Active 2021 SADA DHILLON [address] [place], [address] , [facility] 2 16:27:07 Systemic sclerosis 57365097 Active 2021 SADA DHILLON [address] [place], [address] , [facility] 2 16:27:58 Iron deficiency 35928276 Active 2022 SADA TRANDEACON [address] [place], [address] , [facility] 3 14:24:40 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 SADA TRANDEACON [address] [place], [address] , [facility] 3 14:29:22 Chronic kidney disease stage 1 678782134 Active 2022 SADA TRANDEACON [address] [place], [address] , [facility] 3 14:29:39 SLE glomeruloneph ritis syndrome, 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 Procedures Surgical History Date Name Laterality Status Provider Name and Address Organization Details Recorded Time 5 ligation of fallopian tube completed Siria reyes [facility] 04/11/2022 13:19:51 section completed Siria reyes [facility] 04/11/2022 13:20:25 Imaging Results Imaging Date Name Status LastModified by Organiz ation Details LastModified Time 07/23/2022 biopsy, kidney, ct guidance (PROC) completed tavo Information not available 07/24/2022 17:15:31 Procedure Notes None recorded. Medical Equipment None Reported. Allergies No known drug allergies Medications Name Sig Start Date Stop Date Status Note LastModified by Organization Details LastModified Time compound drug 01/14 completed Not Available Not Available Not Available amoxicillin 500 mg capsule TAKE 1 CAPSULE BY MOUTH 3 TIMES A DAY UNTIL GONE 04/04 completed Not Available Not Available Not Available azithromyci n 250 mg tablet 01/14 completed Not Available Not Available Not Available ibuprofen 800 mg tablet TAKE 1 TABLET BY MOUTH EVERY 6 TO 8 HOURS NEEDED FOR PAIN 01/14 completed Not Available Not Available Not Available prednisone 20 mg tablet TAKE TWO PILLS BY MOUTH ONCE A DAY WITH FOOD 04/04 completed Not Available Not Available Not Available betamethaso ne, augmented 0.05 % topical cream APPLY TO AFFECTED AREAS ON THE BODY TWICE DAILY FOR 2 WEEKS active Not Available Not Available No t Available prednisone 5 mg tablet TAKE 3 TABLETS BY MOUTH EVERY DAY 04/04 completed Not Available Not Available Not Available alclometaso ne 0.05 % topical cream APPLY TO ACTIVE LUPUS PLAQUES ON FACE TWICE A DAY X 2 WEEKS, THEN REST FOR 2 WEEK, REPEAT active Not Available Not Available No t Available clobetasol 0.05 % topical cream 01/14 completed Not Available Not Available Not Available mycophenola te mofetil 500 mg tablet TAKE 3 TABLETS BY MOUTH IN THE MORNING AND 3 TABLETS BEFORE BEDTIME. active Not Available Not Available No t Available triamcinolo ne acetonide 0.1 % dental paste APPLY 1 APPLICATI ON FOUR TIMES A DAY APPLY TO ULCER OF MOUTH NEEDED 3 TIMES DAILY active Not Available Not Available No t Available sodium bicarbonate 650 mg tablet TAKE 1 TABLET TWICE A DAY BY ORAL ROUTE FOR 90 DAYS. active Not Available Not Available No t Available triamcinolo ne acetonide 0.1 % topical ointment 01/14 completed Not Available Not Available Not Available folic acid 1 mg tablet TAKE 1 TABLET (1 MG TOTAL) BY MOUTH IN THE MORNING active Not Available Not Available No t Available clobetasol 0.05 % topical ointment APPLY TO AFFECTED AREA(S) ON THE HANDS TWICE A DAY X 10-14 DAYS THEN NEEDED WITH FLARES active Not Available Not Available No t Available hydroxychlo roquine 200 mg tablet TAKE 1 TABLET BY MOUTH IN THE MORNING AND 1 TABLET BEFORE BEDTIME PHARMACY NOT CONTRACT active Not Available Not Available No t Available albuterol sulfate HFA 90 mcg/actuati on aerosol inhaler 01/14 completed Not Available Not Available Not Available clobetasol 0.05 % scalp solution 01/14 completed Not Available Not Available Not Available mometasone 0.1 % topical cream 01/14 completed Not Available Not Available Not Available Vitals Date Recorded Body height Body mass index (BMI) Body weight Body temperature Heart rate Respiratory rate Systolic blood pressure Diastolic blood pressure Provider Name and Address Organization Details Last Updated DateTime 2 165.1 cm 26.3 kg/m2 59207.5 9 g 99.3 [degF] 76 /min 18 /min 118 mm[Hg] 76 mm[Hg] Bárbara Frank [facility] 2 14:28:18 Date Recorded Body height Body mass index (BMI) Body weight Heart rate Respiratory rate Body temperature Systolic blood pressure Diastolic blood pressure Provider Name and Address Organization Details Last Updated DateTime 3 165.1 cm 25 kg/m2 15890.8 6 g 88 /min 18 /min 97.2 [degF] 110 mm[Hg] 70 mm[Hg] Blayne Watson [facility] 3 13:57:49 Date Recorded Body height Body mass index (BMI) Body weight Heart rate Body temperature Systolic blood pressure Diastolic blood pressure Provider Name and Address Organization Details Last Updated DateTime 3 165.1 cm 25.3 kg/m2 32864.0 4 g 83 /min 98.2 [degF] 118 mm[Hg] 78 mm[Hg] Siria reyes [facility] 3 16:00:58 Social History Question Answer Notes LastModified by Organizat ion Details LastModified Time Tobacco Smoking Status Never Smoker Siria reyes [facility] 04/11/2022 13:21:34 What Is Your Level Of Alcohol Consumption? Moderate [email or web address] Information not available 04/11/2022 What Was The Date Of Your Most Recent Tobacco Screening? 01/14/2023 [email or web address] Information not available 01/14/2023 Do You Or Have You Ever Used Any Other Forms Of Tobacco Or Nicotine? No [email or web address] Information not available 04/11/2022 Sex: Unknown Functional Status None recorded. Mental Status None recorded. Family History Relationship Description Onset Age of this Age Resolved Age Notes LastModified by Organization Details LastModified Time Father Heart disease [email or web address] Not available 04/11 13:17:54 Brother Malignant neoplastic disease CANCER [email or web address] Not available 04/11 13:19:22 Medical History Condition Response Renal Artery Stenosis N Coronary Artery Disease N Gout N Atrial Fibrillation N Cancer within last 5 years N Kidney Stones N Kidney Cyst N PD catheter present N CKD 4 - Education Session 2 N Blood Transfusion N Arthritis (Osteo) N CKD 4 - Education Session 5 N Echo EF N COPD N Depression N CKD 4 - Education Session 6 N CKD 4 - Education Session 3 N Kidney Transplant N Deep Vein Thrombosis N Varicose Veins N Diabetes Type 1 N Access Placement Referred (PD/AVF) N Arthritis N Kidney Smart Completed N CKD 4 - Education Session 1 N Blood Clot N Acid Reflux (GERD) N Atrial Fibrillation (AFIB) N Cancer N Hematuria N Stroke N Chronic Kidney Disease N Vitamin D Deficiency N Liver Disease N Abdominal Aortic Aneurysm (AAA) N Organ Transplant N Rheumatoid Arthritis Y Polycystic Kidney Disease N ESRD Onset Date N Abdominal Aortic Aneurysm Repair N Kidney Disease N Recurrent Urinary Tract Infections N Hyponatremia N NSAIDs Use N Chronic Obstructive Pulmonary Disease N Hyperparathyroidism N Hepatitis A N AVF Present N Thyroid Problems N NSAID Use N Transplant N Hepatitis C N Anemia N Proteinuria N Dialysis Start - Office OR Hospital N Peripheral Vascular Disease (PVD) N Kidney Disease (CKD) N Diabetes Type 2 N CKD 4 - Education Session 4 N Diabetes N Prostate Hypertrophy N CHF N Blood Transfusions N Seizures/Epilepsy N Tuberculosis N Congestive Heart Failure (CHF) N Kidney Failure N Hyperlipidemia N Urinary Tract Infection N Asthma N Hepatitis B N Lupus Y Peripheral Vascular Disease N Sleep Apnea N Thyroid Disorder N Heart Disease N Hypertension N Gynecological HistoryNo gynecological history recorded. Obstetrics History GPAL:G 0 P 0 0 0 0 Past Encounters Encounter ID Performer Location Encounter Start Date Encounter Closed Date Diagnosis/Indication Diagnosis SNOMED-CT Code Diagnosis ICD10 Code Diagnosis Note [id number] [address] [place] [address] 04/16/2022 13:56:14 04/17/2022 09:45:25 Acute kidney injury 51267183 N17.9 ANH in a pt with a diagnosis of lupus. Differenti al includes NSAID induced ANH vs lupus nephritis. She will need renal biopsy. Proteinuria 55896346 R80 .9 ANH in a pt with a diagnosis of lupus. Differenti al includes NSAID induced ANH vs lupus nephritis. She will need renal biopsy. Lupus erythematosus [address] Mcgill. Pt currently on prednisone [place]ol [place] [id number] [place] [address] 01/14/2023 13:50:08 01/14/2023 14:32:08 Acute kidney injury 51840988 N17.9 Anh resolved. Renal biopsy results noted. Proteinuria 18120539 R80 .9 See above. Well controlled SLE glomerulonephritis syndrome, WHO class V 17465796 M32.14 Pt treated with mycophenol ate and steroids. Prednisone is being tapered down. She has little proteinuri a. Biopsy done July 2022. Continue mycophenol ate for now.Will requantify urine protein and check labs today.Pt counseled to avoid - she reports that she is sterililze d. 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 Iron deficiency 57310817 E61.1 Check iron studies. Discoid thais pus erythematosus 842596922 L93.[address] Mcgill. On Benlysta infusions. Health Concerns Section Related Observation LastModified by Organization Detai ls LastModified Time None Recorded Concern Status LastModified by Organization Details LastModified Time None Recorded Advance Directives Directive None Recorded Payers Encounter Date Sequence Insurance Name Policy Number Policy Hooker Covered Member ID Hooker Member ID Guarantor Name 04/16/2022 1 [employer] (POS) [id number] Amanda Felton [id number] Amanda Felton 01/14/2023 1 [employer] ([employer]) [id number] Amanda Felton [id number] Amanda Felton Notes Date Note Type Note Provider Name and Address Organization Details Recorded Time 04/16/2022 text/html 36 y/o AAF PMHx Discoid lupus, referred by Dr Mcgill for acute kidney injury and proteinuria noted on labs done in March 2022. Pt reports that she has not had prior kidney issues. She was self medicating with ibuprofen/advil PM for body aches but stopped taking this medication many weeks ago. Creatinine peaked at 1.88 in March 2022. She had a creatinine of 1.13 in October 2022 AVISE panel done by Dr Mcgill in April 2022 shows a +ve DANETTE 1: 1280, +ve dsDNA Hepatitis screens were negative.Spot urine showed 361 mg/g protein. She was referred to Dermatology who subseqently referred her to rheumatology after making diagnosis of Discoid lupus She is currently on prednisone and mycophenolate. SADA Chambers [address] [address] [place], [address], [facility] 04/16/2022 16:26:23 01/14/2023 text/html 37 y/o AAF PMHx Discoid lupus, referred by Dr Mcgill for acute kidney injury and proteinuria noted on labs done in March 2022. Pt reports that she has not had prior kidney issues. She was self medicating with ibuprofen/advil PM for body aches but stopped taking this medication many weeks ago. Creatinine peaked at 1.88 in March 2022. She had a creatinine of 1.13 in October 2022 AVISE panel done by Dr Mcgill in April 2022 shows a +ve DANETTE 1: 1280, +ve dsDNA Hepatitis screens were negative.Spot urine showed 361 mg/g protein. She was referred to Dermatology who subseqently referred her to rheumatology after making diagnosis of Discoid lupus SHE HAS MISSED SEVERAL APPTS WITH ME. She is back after a 9 month hiatus. She is currently on prednisone and mycophenolate. WE DID A BIOPSY IN 2021 AND SHE WAS DIAGNOSED WITH CLASS V LUPUS. Pt is also getting Benlysta Infusions from Dr Mcgill at [facility]. SADA Chambers [address] [address] [place], [address], [facility] 01/14/2023 14:30:52 OBGyn Episode No OBEpisode recorded.
--- OUTSIDE RECORDS SUMMARY | 2025-01-30 14:03 | XMS_ITS | Clinical Summary ---
Author Organization [facility] Address [address] [facility] [place] [address] Care Team Providers Care Sports Internship Name Role Phone Unavailable Primary Care Provider Unavailabl e Source Comments [facility],non-owned Affiliates and Associated Physician Practices is amultiple site organization consisting of ambulatory clinics and hospital sitesin [place], [place], [place] and [place]. This disclosure is being madepursuant to the Care Everywhere program and may not contain all information available regarding this patient. Last updated 18.[facility] Social History Tobacco Use Types Packs/Day Years Used Date Smoking Tobacco: Never Assessed Sex and Gender Information Value Date Recorded Sex Assigned at Not on file Gender Identity Not on file Sexual Orientation Not on file Last Filed Vital Signs Vital Sign Reading Time Taken Comments Blood Pressure 130/80 11/24/2014 1:00 PM MAT TESTER Pulse - - Temperature - - Respiratory [...] Billing Address SHANICE LING Personal/Famil y 1985 [facility] [place] [address]
--- OUTSIDE RECORDS SUMMARY | 2025-01-30 14:03 | XMS_ITS | Encounter Summary ---
Author Organization [facility] Address [facility] [facility] [place] [address] Care Team Providers Care Bookie Name Role Phone Unavailable Primary Care Provider Unavailabl e Reason for Referral * Consultation (Routine) - Closed Specialty Diagnoses / Procedures Referred By Contac t Referred To Contact Rheumatology Diagnoses Systemic lupus erythematosus, unspecified SLE type, unspecified organ involvement status ([facility]) Lena Briggs PA-C [address] [place] [phone] [facility] [address] [place] [address] Referral ID Status Reason Start Date Expiration Date V isits Requested Visits Authorized [id number] Closed Specialty Services Required 09/28/2024 09/28/2025 1 1 RS AND GENERATORS INSPECTOR Encounter Details Date Type Department Care Team (Latest Contact Info) Description 09/28/2024 Transcribe Orders [facility] - Centralized Scheduling [address] [place] [id number] Lena Briggs PA-C [address] [place] [phone] Systemic lupus erythematosus, unspecified [...]
--- OUTSIDE RECORDS SUMMARY | 2025-01-30 14:04 | XMS_ITS | Clinical Summary ---
Author Organization [facility] at the [facility] Address [address] [place] [address] Care Team Providers Care Java Enterprise Architect Name Role Phone Lena Briggs Primary Care Provider [phone] Devin Garcia MD Unavailable [phone] Allergies No known active allergies Medications [...] 5 months since moving back to the [facility] from [place]. Having increased fatigue, rashes, arthralgias, lymphadenopathy, dyspnea, raynauds, mouth sores, and brain fog. Also having loose stools. Will get a few additional labs, imaging (xrays of hands, chest, spine) and u/s of R hand. Continue hcq 200mg BID and cellcept 1500mg BID. Will try to get Saphnelo restarted ALFONSO, either at our office or can be arranged at [facility]. 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 Consider checking for G6PD deficiency next. Continue yearly eye exams on HCQ. Added HCQ level to AVISE to see if in therapeutic range. Seen with Dr. Garica. F/u 2 weeks Dyspnea 09/03/2024 Weight loss 09/03/2024 Fatigue 03/14/2020 Assessment & Plan (03/14/2020 12:19 PM CDT): Order labs: CBC, vitamin b12, iron level, CMP Skin cyst 03/14/2020 Assessment & Plan (03/14/2020 12:20 PM CDT): Likely inflamed cyst Order cefdinir Skin abnormalities 10/08/2019 Assessment & Plan (10/21/2019 4:58 PM OYSTER SHIPPER): Refer to dermatology Anemia 09/28/2019 Assessment & Plan (03/14/2020 12:19 PM CDT): Recheck CBC, iron level Cont ferrous sulfate Assessment & Plan (10/21/2019 4:58 PM OYSTER SHIPPER): Monitor Cont iron sulfate Assessment & Plan (10/06/2019 4:39 PM OYSTER SHIPPER): Start iron sulfate Check iron levles Refer to GI Pain in both hands 09/07/2019 Assessment & Plan (10/06/2019 4:39 PM OYSTER SHIPPER): Order EMG Assessment & Plan (09/07/2019 1:22 PM OYSTER SHIPPER): Check labs to r/o connective tissue d/o Check arterial blood flow Possibly raynaud's Bilateral hand numbness 09/07/2019 Assessment & Plan (10/06/2019 4:39 PM OYSTER SHIPPER): Order EMG Assessment & Plan (09/07/2019 1:22 PM OYSTER SHIPPER): Check labs to r/o connective tissue d/o Check arterial blood flow Possibly raynaud's Changes in skin texture 09/07/2019 Assessment & Plan (09/07/2019 1:23 PM OYSTER SHIPPER): Refer to derm Encounters Date Type Department Care Team Description 01/27/[address] [address] Brittny Bowen from Last 3 [...] on file Legal Sex Female 7:56 PM OYSTER SHIPPER Gender Identity Not on file Sexual Orientation Straight 03/17/2020 12 :14 AM CDT Obstetrics History Last Filed Vital Signs Vital Sign Reading Time Taken Comments Blood Pressure 122/80 09/03/2024 2:14 PM CDT Pulse 92 10/08/2019 11:22 AM OYSTER SHIPPER Temperature 36.7 C (98 F) 10/08/2019 11:22 AM OYSTER SHIPPER Respiratory Rate 18 10/08/2019 11:22 AM OYSTER SHIPPER Oxygen Saturation 100% 10/08/2019 11:22 AM OYSTER SHIPPER Inhaled Oxygen Concentration - - Weight 72.1 [...] patient's age to complete this topic Insurance [facility] CHOICE PLUS [employer] HMO [facility] Care Teams Java Enterprise Architect Relationship Specialty Start Date End Date Lena Briggs PA [facility] [place] [address] PCP - General Physician Cyber Legal Advisor 08/13/24 Devin Garcia MD [address] [place] [address] Consulting Physician Rheumatology 08/13/24
--- OUTSIDE RECORDS SUMMARY | 2025-01-30 14:04 | XMS_ITS | Referral Summary ---
Author Organization [facility] Address [address] [place] [address] Care Team Providers Care Supervisor Diagnostic Name Role Phone Lena Briggs Primary Care Provider Devin Garcia MD Unavailable Encounters Date Type Department Care Team Description 01/27/[address] [phone] Brittny Bowen from Last 3 [...] 5 months since moving back to the [place] area from [place]. Having increased fatigue, rashes, arthralgias, lymphadenopathy, dyspnea, raynauds, mouth sores, and brain fog. Also having loose stools. Will get a few additional labs, imaging (xrays of hands, chest, spine) and u/s of R hand. Continue hcq 200mg BID and cellcept 1500mg BID. Will try to get Saphnelo restarted ALFONSO, either at our office or can be arranged at [facility]. In light of hemosiderosis on renal bx [...] 10/08/2019 Assessment & Plan (10/21/2019 4:58 PM RETREAD TECHNICIAN): Refer to dermatology Anemia 09/28/2019 Assessment & Plan (03/14/2020 12:19 PM CDT): Recheck CBC, iron level Cont ferrous sulfate Assessment & Plan (10/21/2019 4:58 PM RETREAD TECHNICIAN): Monitor Cont iron sulfate Assessment & Plan (10/06/2019 4:39 PM RETREAD TECHNICIAN): Start iron sulfate Check iron levles Refer to GI Pain in both hands 09/07/2019 Assessment & Plan (10/06/2019 4:39 PM RETREAD TECHNICIAN): Order EMG Assessment & Plan (09/07/2019 1:22 PM RETREAD TECHNICIAN): Check labs to r/o connective tissue d/o Check arterial blood flow Possibly raynaud's Bilateral hand numbness 09/07/2019 Assessment & Plan (10/06/2019 4:39 PM RETREAD TECHNICIAN): Order EMG Assessment & Plan (09/07/2019 1:22 PM RETREAD TECHNICIAN): Check labs to r/o connective tissue d/o Check arterial blood flow Possibly raynaud's Changes in skin texture 09/07/2019 Assessment & Plan (09/07/2019 1:23 PM RETREAD TECHNICIAN): Refer to derm Social History Tobacco Use Types Packs/Day Years Used Date Smoking Tobacco: Never Smokeless Tobacco: Never Alcohol Use Standard Drinks/Week Comments Yes 0 (1 standard drink = 0.6 oz pur e alcohol) Comments Unknown Sex and Gender Information Value Date Recorded Sex Assigned at Not on file Legal Sex Female 7:56 PM RETREAD TECHNICIAN Gender Identity Not on file Sexual Orientation Straight 03/17/2020 12 :14 AM CDT Last Filed Vital Signs Vital Sign Reading Time Taken Comments Blood Pressure 122/80 09/03/2024 2:14 PM CDT Pulse 92 10/08/2019 11:22 AM RETREAD TECHNICIAN Temperature 36.7 C (98 F) 10/08/2019 11:22 AM RETREAD TECHNICIAN Respiratory Rate 18 10/08/2019 11:22 AM RETREAD TECHNICIAN Oxygen Saturation 100% 10/08/2019 11:22 AM RETREAD TECHNICIAN Inhaled Oxygen Concentration - - Weight 72.1 kg (159 lb) 09/03/2024 2:14 PM CDT Height 165.1 cm (5' 5 ) 09/03/2024 2:14 PM CDT Body Mass Index 26.46 09/03/2024 2:14 PM CDT Plan of Treatment Not on file Insurance [facility]ICE [facility] H[facility]/PPO Address: [facility] [address] [place] [address] [facility] Care Teams Supervisor Diagnostic Relationship Specialty Start Date End Date Lena Briggs PA [address] [place] [id number] PCP - General Physician Monitoring Tech 08/13/24 Devin Garcia MD [address] [place] [address] Consulting Physician Rheumatology 08/13/24
--- OUTSIDE RECORDS SUMMARY | 2025-01-30 14:04 | XMS_ITS | Data Portability ---
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 Role Phone LENA METCALF Primary Care Provider Assessment Encounter Date Assessment Date Assessment LastModified by Organization Details LastModified Time 10/05/2016 10/05/2016 Annual exam--Pap performed, s/p BTL Abnormal uterine bleeding intermittently [email or web address] Not available 10/05/2016 17:42:19 Plan of Treatment Reminders Order Date Submit Date Provider Last Modified By Organization Details Last Modified Time Details Appointments ANY 30 2024 08:30A M ZORAIDA IYER Not available Not available Not available Lab CMP, serum or plasma 2024 025 KENTRELL Villagran, [address], [address], [place], [address], 01/25/2025 06:08:48 lipid panel, serum or plasma 2024 025 KENTRELL Villagran, [address], [address], [place], [address], 01/25/2025 06:08:47 TSH + free T4, serum 2024 025 KENTRELL Villagran, [address], [address], [place], [address], 01/25/2025 06:08:46 HbA1c (hemoglob in A1c), blood 2024 025 KENTRELL Villagran, [address], [address], [place], [address], 01/25/2025 06:08:49 RPR (rapid plasma reagin), serum 2024 025 [facility], [address] [place], [place] [address]nayan Cosme, [address], [place], [address], 01/25/2025 06:08:52 HIV 1 + 2, meaningfu l use set 2024 025 [facility], [address] [place] [address] Ba, [address], [place], [address], 01/25/2025 06:08:53 Hepatitis C IgG Ab, qual, serum 2024 025 [facility], [address] [place] [address] Ba, [address], [place], [address], 01/25/2025 06:08:44 chlamydia trachomat is + neisseria gonorrhoe ae + trichomon as vaginalis rRNA panel, ERICA+probe 2024 025 [facility], [address] [place] [address] Ba, [address], [place], [address], 01/25/2025 06:08:45 CBC w/ auto diff 2024 025 [facility], [address] [place] [address], [address], [place], [place], [address], 01/25/2025 06:08:50 DANETTE (antinucl ear antibodie s) screen, serum 2023 024 KENTRELLFRANCISCO [facility], [address], [address], [place], [address], 08/31/2024 15:10:10 CMP, serum or plasma 2023 024 KENTRELLFRANCISCO Santos, [address], [address], [place], [address], 08/31/2024 15:10:14 CBC w/ auto diff 2023 024 [facility], [address], [address], [place], [address], 08/31/2024 15:10:17 HbA1c (hemoglob in A1c), blood 2023 024 [facility], [address], [address], [place], [address], 08/31/2024 15:10:16 TSH + free T4, serum 2023 024 [facility], [address], [address], [place], [address], 08/31/2024 15:10:11 lipid panel, serum 2023 024 [facility], [address], [address], [place], [address], 08/31/2024 15:10:12 CBC w/ auto diff 2016 017 [facility] (Lab), [address], [place], [address], 11/23/2016 11:15:43 CMP, serum or plasma 2016 017 [facility] (Lab), [address], [place], [address], 11/23/2016 11:14:26 T4, free, serum 2016 017 [facility] (Lab), [address], [place], [address], 11/25/2016 03:40:00 TSH, serum or plasma 2016 017 [facility] (Lab), [address], [place], [address], 11/23/2016 11:16:19 HbA1c (hemoglob in A1c), blood 2016 017 [facility] (Lab), [address], [place], [address], 11/23/2016 13:05:59 cholester ol, total, serum 2016 017 [facility] (Lab), [address], [place], [address], 11/23/2016 11:15:19 urinalysi s, dipstick, reflex micro 2016 017 [facility] (Lab), [address], [place], [address], 11/23/2016 11:16:44 unlisted lab - allergen w/total IgE area 8 2016 017 [facility] (Lab), [address], [place], [address], 11/25/2016 03:39:56 food allergen panel, serum 2016 017 [facility] (Lab), [address], [place], [address], 11/25/2016 03:39:59 unlisted lab - Pap Ig, CT-NG, TV, HPV 16/18 2015 016 DBA_PATCH_ [id number] [facility] (Lab), [address], [place], [address], 10/20/2016 04:32:36 CBC w/ auto diff 2015 016 DBA_PATCH_ [id number] [facility] (Lab), [address] [place], [address], 10/20/2016 04:32:18 TSH, serum or plasma 2015 016 DBA_PATCH_ [id number] [facility] (Lab), [address] [place], [address], 10/20/2016 04:32:52 FSH (follicle -stimulat ing hormone), serum 2015 016 DBA_PATCH_ [id number] [facility] ([facility]), [address] [place], [address], 10/20/2016 04:32:51 Referral hematolog ist referral 2024 025 [email or web address] John Kingston MD, [address] [facility], [place], [address], 01/22/2025 09:27:39 rheumatol ogist referral 2023 024 [email or web address] Josh Avila MD, [address] [facility], [address], [place], [address], 08/04/2024 08:00:11 nephrolog ist referral 2023 024 Ligia Maddox MD, [address] [facility], [address], [place], [address], 08/04/2024 08:00:10 Procedures None recorded. Surgeries None recorded. Imaging None recorded. Medication Orders Colace 100 mg capsule 2016 017 [id number], [address] [place], [place], [id number], 06/30/2024 14:30:12 Patient TargetsNo targets recorded. Patient Instructions Encounter Date Encounter Id Patient Instructions Last Modified By Organization Details Last Modified Time 10/05/2016 [id number] 1. Pap smear performed today. Continue monthly self breast exams. Annual exams yearly. 2. Labs performed in evaluation of your complaints of abnormal bleeding. Will consider pelvic ultrasound if tests return normal. 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 Referral for Systemic lupus erythematosus Referring Physician: Lena Metcalf [facility], Encounter Date: 06/30/2024 Referring Physician: Lena Metcalf [facility], Encounter Date: 01/22/2025 Results Created Date Observation Date Name Description Value Unit Range Abnormal Flag Note LastModifiedBy Organization Detail LastModifiedTime 10/05/20 16 10/05/2016 CBC w/ auto diff WBC 3.7 K/uL 3.4-10 .8 Not Available [facility] (Lab) [address] [place], [address], 10/05/2016 15:34:40 10/05/20 16 10/05/2016 CBC w/ auto diff red blood count 4.7 M/uL 4.2-5. 4 Not Available [facility] (Lab) [address] [place], [address], 10/05/2016 15:34:40 10/05/20 16 10/05/2016 CBC w/ auto diff hemoglobin 12.0 g/dL 11.5-1 5.5 Not Available [facility] (Lab) [address] [place], [address], 10/05/2016 15:34:40 10/05/20 16 10/05/2016 CBC w/ auto diff hematocrit 36.8 % 36.0-4 8.0 Not Available [facility] (Lab) [address] [place], [address], 10/05/2016 15:34:40 10/05/20 16 10/05/2016 CBC w/ auto diff MCV 79 fL 80-95 low Not Available [facility] (Lab) [address] [place], [address], 10/05/2016 15:34:40 10/05/20 16 10/05/2016 CBC w/ auto diff MCH 26 pg 27-32 low Not Available [facility] (Lab) [address] [place], [address], 10/05/2016 15:34:40 10/05/20 16 10/05/2016 CBC w/ auto diff MCHC 33 g/dL 32-36 Not Available [facility] (Lab) [address] [place], [address], 10/05/2016 15:34:40 10/05/20 16 10/05/2016 CBC w/ auto diff platelets 223 K/uL 155-37 9 Not Available [facility] (Lab) [address] [place], [address], 10/05/2016 15:34:40 10/05/20 16 10/05/2016 CBC w/ auto diff RDW 15.0 % 11.5-1 4.5 high Not Available [facility] (Lab) [address] [facility], [place], [address], 10/05/2016 15:34:40 10/05/20 16 10/05/2016 CBC w/ auto diff MPV 11.5 fL 8.9-12 .7 Not Available [facility] (Lab) [address] [facility], [place], [address], 10/05/2016 15:34:40 10/05/20 16 10/05/2016 CBC w/ auto diff neutrophils absolute 1.1 K/uL 1.4-7. 0 low Not Available [facility] (Lab) [address] [place], [address], 10/05/2016 15:34:40 10/05/20 16 10/05/2016 CBC w/ auto diff lymphs (absolute) 2.1 K/uL 0.7-3. 1 Not Available [facility] (Lab) [address] [place], [address], 10/05/2016 15:34:40 10/05/20 16 10/05/2016 CBC w/ auto diff monocytes (absolute) 0.5 K/uL 0.1-0. 9 Not Available [facility] (Lab) [address] [facility], [place], [address], 10/05/2016 15:34:40 10/05/20 16 10/05/2016 CBC w/ auto diff eos (absolute) 0.0 K/uL 0.0-0. 4 Not Available [facility] (Lab) [address] [facility], [place], [address], 10/05/2016 15:34:40 10/05/20 16 10/05/2016 CBC w/ auto diff baso (absolute) 0.0 K/uL 0.1-0. 3 low Not Available [facility] (Lab) [address] [facility], [place], [address], 10/05/2016 15:34:40 10/05/20 16 10/05/2016 CBC w/ auto diff neut % 29.6 % 40.0-7 4.0 low Not Available [facility] (Lab) [address] [facility], [place], [address], 10/05/2016 15:34:40 10/05/20 16 10/05/2016 CBC w/ auto diff lymphs % 55.8 % 14.0-4 6.0 high Not Available [facility] (Lab) [address] [place], [address], 10/05/2016 15:34:40 10/05/20 16 10/05/2016 CBC w/ auto diff mono % 13.8 % 4.0-12 .0 high Not Available [facility] (Lab) [address] [place], [address], 10/05/2016 15:34:40 10/05/20 16 10/05/2016 CBC w/ auto diff eos % 1 % <=5 Not Available [facility] (Lab) [address] [place], [address], 10/05/2016 15:34:40 10/05/20 16 10/05/2016 CBC w/ auto diff baso % 0.3 % 0.1-1. 1 Not Available [facility] (Lab) [address] [place], [address], 10/05/2016 15:34:40 10/05/20 16 10/05/2016 TSH, serum or plasm a TSH 0.81 uIU/m L 0.50-4 .50 Not Available [facility] (Lab) [address] [place], [address], 10/05/2016 16:00:46 10/05/20 16 10/06/2016 FSH (foll icle- stimu latin g hormo ne), serum follicle stimulating hormone 2.1 mIU/m L Folli cular phase 3.5 - 12.5 Ovula tion phase 4.7 - 21.5 Lutea l phase 1.7 - 7.7 Postm enopa usal 25.8 - 134.8 Not Available [facility] (Lab) [address] [place], [address], 10/06/2016 06:15:36 10/05/20 16 10/09/2016 pap, IG + CT/NG + HR HPV + refle x HPV (16+1 8) diagnosis: SPRCS NEGAT KARINA FOR INTRA EPITH ELIAL LESIO N AND RANDEE ALFRED . Perfo rmed at: WB Not Available [facility] (Lab) [address] [place], [address], 10/09/2016 17:11:40 10/05/20 16 10/09/2016 pap, IG + CT/NG + HR HPV + refle x HPV (16+1 8) specimen adequacy: SPRCS Satis facto ry for evalu ation . Endoc ervic al and/o r squam ous metap lasti c cells (endo cervi valorie compo nent) are prese nt. Perfo rmed at: WB Not Available [facility] (Lab) [address] [place], [address], 10/09/2016 17:11:40 10/05/20 16 10/09/2016 pap, IG + CT/NG + HR HPV + refle x HPV (16+1 8) performed by: [facility] Ramsey Rashid Perfo rmed at: WB Not Available [facility] (Lab) [address] [place], [address], 10/09/2016 17:11:40 10/05/20 16 10/09/2016 pap, IG + CT/NG + HR HPV + refle x HPV (16+1 8) Pap smear, 1 slide . Perfo rmed at: WB Not Available [facility] (Lab) [address] [facility], [place], [address], 10/09/2016 17:11:40 10/05/20 16 10/09/2016 pap, IG + CT/NG + HR HPV + refle x HPV (16+1 8) note: PAPSMR The Pap smear is a scree jude test desig linda to aid in the detec tion of dominic ligna nt and malig nant condi tions of the uteri ne cervi x. It is not a diagn ostic proce dure and shoul d not be used as the sole means of detec ting cervi valorie cance r. Both false -posi tive and false -nega tive repor ts do occur . . Perfo rmed at: WB Not Available [facility] (Lab) [address] [facility], [place], [address], 10/09/2016 17:11:40 10/05/20 16 10/09/2016 pap, IG + CT/NG + HR HPV + refle x HPV (16+1 8) test methodology: IGLPAP This liqui d based ThinP rep(R ) pap test was scree linda with the use of an image guide chandni newby Perfo rmed at: WB Not Available [facility] (Lab) [address] [facility], [place], [address], 10/09/2016 17:11:40 10/05/20 16 10/09/2016 pap, IG + CT/NG + HR HPV + refle x HPV (16+1 8) HPV, high-risk Negati ve negati ve This high- risk HPV test detec ts thirt een high- risk types (16/1 8/31/ 33/35 /39/4 5/51/ 52/56 /58/5 ) witho ut diffe renti ation . . Perfo rmed at: =G Not Available [facility] (Lab) [address] [place], [address], 10/09/2016 17:11:40 10/05/20 16 10/09/2016 pap, IG + CT/NG + HR HPV + refle x HPV (16+1 8) chlamydia, nuc. acid Negati ve negati ve Perfo rmed at: =G Not Available [facility] (Lab) [address] [facility], [place], [address], 10/09/2016 17:11:40 10/05/20 16 10/09/2016 pap, IG + CT/NG + HR HPV + refle x HPV (16+1 8) gonococcus, nuc. acid amp Negati ve negati ve Perfo rmed at: =G Not Available [facility] (Lab) [address] [facility], [place], [address], 10/09/2016 17:11:40 10/05/20 16 10/09/2016 pap, IG + CT/NG + HR HPV + refle x HPV (16+1 8) trich vag by ERICA Negati ve negati ve Perfo rmed at: =G Not Available [facility] (Lab) [address] [facility], [place], [address], 10/09/2016 17:11:40 11/22/19 17 11/22/2016 urina lysis , dipst ick, refle x micro urhead1 URINAL YSIS, COMPLE TE Ur inalys is Gross Exam Not Available [facility] (Lab) [address] [place], [address], 11/22/2016 19:46:35 11/22/19 17 11/22/2016 urina lysis , dipst ick, refle x micro specific gravity 1.025 1.001- 1.035 Not Available [facility] (Lab) [address], [place], [address], 11/22/2016 19:46:35 11/22/19 17 11/22/2016 urina lysis , dipst ick, refle x micro pH 6.0 5.0-7. 0 Not Available [facility] (Lab) [address] [facility], [place], [address], 11/22/2016 19:46:35 11/22/19 17 11/22/2016 urina lysis , dipst ick, refle x micro urine-color LT. YELLOW yellow abnormal Not Available [facility] (Lab) [address] [facility], [place], [address], 11/22/2016 19:46:35 11/22/19 17 11/22/2016 urina lysis , dipst ick, refle x micro appearance CLEAR clear Not Available [facility] (Lab) [address] [place], [address], 11/22/2016 19:46:35 11/22/19 17 11/22/2016 urina lysis , dipst ick, refle x micro WBC esterase NEGATI VE uL negati ve Not Available [facility] (Lab) [address] [place], [address], 11/22/2016 19:46:35 11/22/19 17 11/22/2016 urina lysis , dipst ick, refle x micro protein NEGATI VE mg/dL negati ve Not Available [facility] (Lab) [address] [place], [address], 11/22/2016 19:46:35 11/22/19 17 11/22/2016 urina lysis , dipst ick, refle x micro glucose NEGATI VE mg/dL negati ve Not Available [facility] (Lab) [address] [place], [address], 11/22/2016 19:46:35 11/22/19 17 11/22/2016 urina lysis , dipst ick, refle x micro ketones NEGATI VE mg/dL negati ve Not Available [facility] (Lab) [address] [facility], [place], [address], 11/22/2016 19:46:35 11/22/19 17 11/22/2016 urina lysis , dipst ick, refle x micro occult blood NEGATI VE cris/u L negati ve Not Available [facility] (Lab) [address] [place], [address], 11/22/2016 19:46:35 11/22/19 17 11/22/2016 urina lysis , dipst ick, refle x micro bilirubin NEGATI VE negati ve Not Available [facility] (Lab) [address] [place], [address], 11/22/2016 19:46:35 11/22/19 17 11/22/2016 urina lysis , dipst ick, refle x micro urobilinogen 0.2 Not Available [facility] (Lab) [address] [facility], [place], [address], 11/22/2016 19:46:35 11/22/19 17 11/22/2016 urina lysis , dipst ick, refle x micro nitrite, urine NEGATI VE negati ve Not Available [facility] (Lab) [address] [place], [address], 11/22/2016 19:46:35 11/22/19 17 11/22/2016 TSH, serum or plasm a TSH 0.63 uIU/m L 0.50-4 .50 Not Available [facility] (Lab) [address] [place], [address], 11/22/2016 19:48:39 11/22/19 17 11/22/2016 CBC w/ auto diff WBC 3.8 K/uL 3.4-10 .8 Not Available [facility] (Lab) [address] [place], [address], 11/22/2016 19:57:45 11/22/19 17 11/22/2016 CBC w/ auto diff red blood count 4.3 M/uL 4.2-5. 4 Not Available [facility] (Lab) [address] [place], [address], 11/22/2016 19:57:45 11/22/19 17 11/22/2016 CBC w/ auto diff hemoglobin 10.9 g/dL 11.5-1 5.5 low Not Available [facility] (Lab) [address] [place], [address], 11/22/2016 19:57:45 11/22/19 17 11/22/2016 CBC w/ auto diff hematocrit 33.8 % 36.0-4 8.0 low Not Available [facility] (Lab) [address] [place], [address], 11/22/2016 19:57:45 11/22/19 17 11/22/2016 CBC w/ auto diff MCV 78 fL 80-95 low Not Available [facility] (Lab) [address] [place], [address], 11/22/2016 19:57:45 11/22/19 17 11/22/2016 CBC w/ auto diff MCH 25 pg 27-32 low Not Available [facility] (Lab) [address] [place], [address], 11/22/2016 19:57:45 11/22/19 17 11/22/2016 CBC w/ auto diff MCHC 32 g/dL 32-36 Not Available [facility] (Lab) [address] [place], [address], 11/22/2016 19:57:45 11/22/19 17 11/22/2016 CBC w/ auto diff platelets 219 K/uL 155-37 9 Not Available [facility] (Lab) [address] [place], [address], 11/22/2016 19:57:45 11/22/19 17 11/22/2016 CBC w/ auto diff RDW 14.1 % 11.5-1 4.5 Not Available [facility] (Lab) [address] [place], [address], 11/22/2016 19:57:45 11/22/19 17 11/22/2016 CBC w/ auto diff MPV 10.8 fL 8.9-12 .7 Not Available [facility] (Lab) [address] [place], [address], 11/22/2016 19:57:45 11/22/19 17 11/22/2016 CBC w/ auto diff neutrophils absolute 1.2 K/uL 1.4-7. 0 low Not Available [facility] (Lab) [address] [place], [address], 11/22/2016 19:57:45 11/22/19 17 11/22/2016 CBC w/ auto diff lymphs (absolute) 2.2 K/uL 0.7-3. 1 Not Available [facility] (Lab) [address] [place], [address], 11/22/2016 19:57:45 11/22/19 17 11/22/2016 CBC w/ auto diff monocytes (absolute) 0.4 K/uL 0.1-0. 9 Not Available [facility] (Lab) [address] [place], [address], 11/22/2016 19:57:45 11/22/19 17 11/22/2016 CBC w/ auto diff eos (absolute) 0.0 K/uL 0.0-0. 4 Not Available [facility] (Lab) [address] [place], [address], 11/22/2016 19:57:45 11/22/19 17 11/22/2016 CBC w/ auto diff baso (absolute) 0.0 K/uL 0.1-0. 3 low Not Available [facility] (Lab) [address], [place], [address], 11/22/2016 19:57:45 11/22/19 17 11/22/2016 CBC w/ auto diff neut % 30.3 % 40.0-7 4.0 low Not Available [facility] (Lab) [address], [place], [address], 11/22/2016 19:57:45 11/22/19 17 11/22/2016 CBC w/ auto diff lymphs % 58.6 % 14.0-4 6.0 high Not Available [facility] (Lab) [address] [facility], [place], [address], 11/22/2016 19:57:45 11/22/19 17 11/22/2016 CBC w/ auto diff mono % 10.0 % 4.0-12 .0 Not Available [facility] (Lab) [address] [facility], [place], [address], 11/22/2016 19:57:45 11/22/19 17 11/22/2016 CBC w/ auto diff eos % 1 % <=5 Not Available [facility] (Lab) [address] [facility], [place], [address], 11/22/2016 19:57:45 11/22/19 17 11/22/2016 CBC w/ auto diff baso % 0.3 % 0.1-1. 1 Not Available [facility] (Lab) [address] [place], [address], 11/22/2016 19:57:45 11/22/19 17 11/22/2016 caroline stero l, total , serum cholestrol 160.0 mg/dL 140.0- 200.0 Not Available [facility] (Lab) [address] [facility], [place], [address], 11/22/2016 20:43:30 11/22/19 17 11/22/2016 CMP, serum or plasm a glucose, serum 81 mg/dL 65-99 Not Available [facility] (Lab) [address], [place], [address], 11/22/2016 20:51:30 11/22/19 17 11/22/2016 CMP, serum or plasm a BUN 10 mg/dL 8-26 Not Available [facility] (Lab) [address], [place], [address], 11/22/2016 20:51:30 11/22/19 17 11/22/2016 CMP, serum or plasm a creat 0.90 mg/dL 0.50-1 .40 Not Available [facility] (Lab) [address], [place], [address], 11/22/2016 20:51:30 11/22/19 17 11/22/2016 CMP, serum or plasm a BUN/creatnin e ratio 11.1 Not Available [facility] (Lab) [address], [place], [address], 11/22/2016 20:51:30 11/22/19 17 11/22/2016 CMP, serum or plasm a sodium, serum 139.0 mEq/L 136.0- 144.0 Not Available [facility] (Lab) [address], [place], [address], 11/22/2016 20:51:30 11/22/19 17 11/22/2016 CMP, serum or plasm a potassium, serum 4.2 mmol/ L 3.5-5. 3 Not Available [facility] (Lab) [address], [place], [address], 11/22/2016 20:51:30 11/22/19 17 11/22/2016 CMP, serum or plasm a chloride, serum 105 mmol/ l 101-11 1 Not Available [facility] (Lab) [address], [place], [address], 11/22/2016 20:51:30 11/22/19 17 11/22/2016 CMP, serum or plasm a carbon dioxide total 22.4 mmol/ L 21.0-3 2.0 Not Available [facility] (Lab) [address], [place], [address], 11/22/2016 20:51:30 11/22/19 17 11/22/2016 CMP, serum or plasm a aniongp 16.0 mmol/ L Not Available [facility] (Lab) [address], [place], [address], 11/22/2016 20:51:30 11/22/19 17 11/22/2016 CMP, serum or plasm a calcium, serum 9.1 mg/dL 8.2-10 .0 Not Available [facility] (Lab) [address], [place], [address], 11/22/2016 20:51:30 11/22/19 17 11/22/2016 CMP, serum or plasm a total protein 7.3 g/dL 6.7-8. 2 Not Available [facility] (Lab) [address], [place], [address], 11/22/2016 20:51:30 11/22/19 17 11/22/2016 CMP, serum or plasm a albumin, serum 4.0 g/dL 3.5-5. 5 Not Available [facility] (Lab) [address], [place], [address], 11/22/2016 20:51:30 11/22/19 17 11/22/2016 CMP, serum or plasm a agratio 1.2 Not Available [facility] (Lab) [address] [place], [address], 11/22/2016 20:51:30 11/22/19 17 11/22/2016 CMP, serum or plasm a bilt 0.2 mg/dL 0.2-1. 0 Not Available [facility] (Lab) [address], [place], [address], 11/22/2016 20:51:30 11/22/19 17 11/22/2016 CMP, serum or plasm a AST 15.0 U/L 10.0-4 2.0 Not Available [facility] (Lab) [address] [place], [address], 11/22/2016 20:51:30 11/22/19 17 11/22/2016 CMP, serum or plasm a ALT 9.0 U/L 10.0-6 0.0 low Not Available [facility] (Lab) [address] [facility], [place], [address], 11/22/2016 20:51:30 11/22/19 17 11/22/2016 CMP, serum or plasm a alk phos 55.0 IU/L 42.0-1 21.0 Not Available [facility] (Lab) [address] [place], [address], 11/22/2016 20:51:30 11/22/19 17 11/22/2016 CMP, serum or plasm a osmol 276.0 mOsm/ L Not Available [facility] (Lab) [address] [place], [address], 11/22/2016 20:51:30 11/22/19 17 11/22/2016 CMP, serum or plasm a eGFR, AM 95 m/lmi n/1.7 3_m2 >=60 Not Available [facility] (Lab) [address] [facility], [place], [address], 11/22/2016 20:51:30 11/22/19 17 11/22/2016 CMP, serum or plasm a eGFR, non- AM 78 mL/mi n/1.7 3/m2 >=60 Not Available [facility] (Lab) [address] [place], [address], 11/22/2016 20:51:30 11/22/19 17 11/23/2016 HbA1c (hemo globi n A1c), blood hemoglobin A1C 5.4 % 4.8-5. 6 . Pre-d iabet es: 5.7 - 6.4 Diabe sole: >6.4 Glyce vandana contr ol for adult s with diabe sole: <7.0 Not Available [facility] (Lab) [address] [place], [address], 11/23/2016 06:17:39 11/22/19 17 11/25/2016 respi rator y aller gen panel - [facility] class description [facility] Level s of Speci fic IgE Class Descr iptio n of Class ----- ----- ----- ----- ----- -- ----- ----- ----- ----- ----- < 0.10 0 Negat karina 0.10 - 0.31 0/I Equiv ocal/ Low 0.32 - 0.55 I Low 0.56 - 1.40 II Moder ate 1.41 - 3.90 III High 3.91 - 19.00 IV Very High 19.01 - 100.0 0 V Very High >100. 00 Very High Perfo rmed at: BN Not Available [facility] (Lab) [address] [place], [address], 11/25/2016 03:39:56 11/22/1911/25/2016 respi rator y [facility] immunoglobul in E, total 118 IU/mL 0-100 high Perfo rmed at: CB Not Available [facility] (Lab) [address] [facility], [place], [address], 11/25/2016 03:39:56 11/22/19 17 11/25/2016 respi rator y aller gen panel - [facility] a D109-NhY D pteronyssinu s 0.20 kU/L class 0/I abnormal Perfo rmed at: BN Not Available [facility] (Lab) [address] [place], [address], 11/25/2016 03:39:56 11/22/1911/25/2016 respi rator y aller gen panel - [facility] a W922-KrU D farinae mite 0.16 kU/L class 0/I abnormal Perfo rmed at: BN Not Available [facility] (Lab) [address] [place], [address], 11/25/2016 03:39:56 11/22/19 17 11/25/2016 respi rator y aller gen panel - [facility] a J515-EeY CAT epithelium/d maurice <0.10 kU/L class 0 Perfo rmed at: BN Not Available [facility] (Lab) [address] [facility], [place], [address], 11/25/2016 03:39:56 11/22/19 17 11/25/2016 respi rator y aller gen panel - [facility] a I670-ArS dog dander <0.10 kU/L class 0 Perfo rmed at: BN Not Available [facility] (Lab) [address] [facility], [place], [address], 11/25/2016 03:39:56 11/22/19 17 11/25/2016 respi rator y aller gen panel - [facility] a k705-CqP bermuda grass <0.10 kU/L class 0 Perfo rmed at: BN Not Available [facility] (Lab) [address] [place], [address], 11/25/2016 03:39:56 11/22/19 17 11/25/2016 respi rator y aller gen panel - [facility] a p270-JoT kelsea <0.10 kU/L class 0 Perfo rmed at: BN Not Available [facility] (Lab) [address] [place], [address], 11/25/2016 03:39:56 11/22/19 17 11/25/2016 respi rator y aller gen panel - [facility] a K066-KvE cockroach, irish <0.10 kU/L class 0 Perfo rmed at: BN Not Available [facility] (Lab) [address] [place], [address], 11/25/2016 03:39:56 11/22/19 17 11/25/2016 respi rator y aller gen panel - [facility] a T547-CsG penicillium chrysogen <0.10 kU/L class 0 Perfo rmed at: BN Not Available [facility] (Lab) [address] [place], [address], 11/25/2016 03:39:56 11/22/19 17 11/25/2016 respi rator y aller gen panel - [facility] P263-KkN cladosporium herbarum <0.10 kU/L class 0 Perfo rmed at: BN Not Available [facility] (Lab) [address] [place], [address], 11/25/2016 03:39:56 11/22/19 17 11/25/2016 respi rator y aller gen panel - [facility] jorgito T903-LmF aspergillus fumigatus <0.10 kU/L class 0 Perfo rmed at: BN Not Available [facility] (Lab) [address] [place], [address], 11/25/2016 03:39:56 11/22/19 17 11/25/2016 respi rator y aller gen panel - [facility] jorgito S840-PaB alternaria alternata <0.10 kU/L class 0 Perfo rmed at: BN Not Available [facility] (Lab) [address] [place], [address], 11/25/2016 03:39:56 11/22/19 17 11/25/2016 respi rator y aller gen panel - [facility] jorgito M958-SmR maple/box elder <0.10 kU/L class 0 Perfo rmed at: BN Not Available [facility] (Lab) [address] [place], [address], 11/25/2016 03:39:56 11/22/19 17 11/25/2016 respi rator y aller gen panel - [facility] M512-ClJ cedar, mountain <0.10 kU/L class 0 Perfo rmed at: BN Not Available [facility] (Lab) [address] [place], [address], 11/25/2016 03:39:56 11/22/19 17 11/25/2016 respi rator y aller gen panel - [facility] P394-LlH oak, white <0.10 kU/L class 0 Perfo rmed at: BN Not Available [facility] (Lab) [address], [place], [address], 11/25/2016 03:39:56 11/22/19 17 11/25/2016 respi rator y aller gen panel - [facility] a A093-IgP elm, rwandan <0.10 kU/L class 0 Perfo rmed at: BN Not Available [facility] (Lab) [address], [place], [address], 11/25/2016 03:39:56 11/22/19 17 11/25/2016 respi rator y aller gen panel - [facility] a U524-LbP maple leaf sycamore <0.10 kU/L class 0 Perfo rmed at: BN Not Available [facility] (Lab) [address], [place], [address], 11/25/2016 03:39:56 11/22/19 17 11/25/2016 respi rator y aller gen panel - [facility] a D805-FeW cottonwood <0.10 kU/L class 0 Perfo rmed at: BN Not Available [facility] (Lab) [address] [place], [address], 11/25/2016 03:39:56 11/22/19 17 11/25/2016 respi rator y aller gen panel - [facility] R634-IjY doreen, white <0.10 kU/L class 0 Perfo rmed at: BN Not Available [facility] (Lab) [address], [place], [address], 11/25/2016 03:39:56 11/22/19 17 11/25/2016 respi rator y aller gen panel - [facility] X974-CuB walnut <0.10 kU/L class 0 Perfo rmed at: BN Not Available [facility] (Lab) [address] [place], [address], 11/25/2016 03:39:56 11/22/19 17 11/25/2016 respi rator y aller gen panel - [facility] G998-BxJ pecan, hickory <0.10 kU/L class 0 Perfo rmed at: BN Not Available [facility] (Lab) [address] [place], [address], 11/25/2016 03:39:56 11/22/19 17 11/25/2016 respi rator y aller gen panel - [facility] a X116-CtQ white mulberry <0.10 kU/L class 0 Perfo rmed at: BN Not Available [facility] (Lab) [address] [place], [address], 11/25/2016 03:39:56 11/22/19 17 11/25/2016 respi rator y aller gen panel - [facility] G175-BlE cladosporium herbarum <0.10 kU/L class 0 Perfo rmed at: BN Not Available [facility] (Lab) [address] [place], [address], 11/25/2016 03:39:56 11/22/19 17 11/25/2016 respi rator y aller gen panel - [facility] a N749-PqO thistle, luxembourger <0.10 kU/L class 0 Perfo rmed at: BN Not Available [facility] (Lab) [address] [place], [address], 11/25/2016 03:39:56 11/22/19 17 11/25/2016 respi rator y aller gen panel - [facility] a X908-TuQ pigweed, rough <0.10 kU/L class 0 Perfo rmed at: BN Not Available [facility] (Lab) [address] [place], [address], 11/25/2016 03:39:56 11/22/19 17 11/25/2016 [facility] M999-LuC rough marshelder <0.10 kU/L class 0 Perfo rmed at: BN Not Available [facility] (Lab) [address] [place], [address], 11/25/2016 03:39:56 11/22/19 17 11/25/2016 respi rator y aller gen panel - [facility] E072 - IgE mouse urine <0.10 kU/L class 0 Perfo rmed at: BN Not Available [facility] (Lab) [address] [place], [address], 11/25/2016 03:39:56 11/22/19 17 11/25/2016 food aller gen panel , serum B170-DzM milk <0.10 kU/L class 0 Not Available [facility] (Lab) [address] [facility], [place], [address], 11/25/2016 03:39:58 11/22/19 17 11/25/2016 food aller gen panel , serum J138-UeA wheat <0.10 kU/L class 0 Not Available [facility] (Lab) [address] [place], [address], 11/25/2016 03:39:58 11/22/19 17 11/25/2016 food aller gen panel , serum X368-ZtI corn <0.10 kU/L class 0 Not Available [facility] (Lab) [address] [place], [address], 11/25/2016 03:39:58 11/22/1911/25/2016 food aller gen panel , serum C478-ZmN peanut <0.10 kU/L class 0 Not Available [facility] (Lab) [address] [place], [address], 11/25/2016 03:39:58 11/22/1911/25/2016 food aller gen panel , serum E526-ThV soybean <0.10 kU/L class 0 Not Available [facility] (Lab) [address] [place], [address], 11/25/2016 03:39:58 11/22/19 17 11/25/2016 food aller gen panel , serum U874-EzN pork <0.10 kU/L class 0 Not Available [facility] (Lab) [address] [place], [address], 11/25/2016 03:39:58 11/22/19 17 11/25/2016 food aller gen panel , serum I912-FvR beef <0.10 kU/L class 0 Not Available [facility] (Lab) [address] [place], [address], 11/25/2016 03:39:58 11/22/1911/25/2016 food aller gen panel , serum HO49-RaO food mix (seafoods) Negati ve Aller gens in this mix are: Blue musse l Fish Salmo n Shrim p Tuna Not Available [facility] (Lab) [address] [place], [address], 11/25/2016 03:39:58 11/22/19 17 11/25/2016 food aller gen panel , serum G796-UoD egg, whole <0.10 kU/L class 0 Not Available [facility] (Lab) [address] [place], [address], 11/25/2016 03:39:58 11/22/1911/25/2016 food aller gen panel , serum N041-OlS chocolate/ca mcnally <0.10 kU/L class 0 Not Available [facility] (Lab) [address] [place], [address], 11/25/2016 03:39:58 11/22/19 17 11/25/2016 T4, free, serum T4,free(dire ct) 1.05 NG/dL 0.82-1 .77 Not Available [facility] (Lab) [address] [place], [address], 11/25/2016 03:40:00 08/28/2008/31/2024 DANETTE W/REF ZEYAD IF POSIT KARINA DANETTE direct POSITI VE negati ve abnormal Not Available [facility] ([facility]) [address] [place], [address], 08/31/2024 15:10:09 08/28/2008/29/2024 TSH+F REE T4 TSH 1.410 uIU/m L 0.450- 4.500 Not Available [facility] ([facility]) [address] [place], [address], 08/31/2024 15:10:11 08/28/2008/29/2024 TSH+F REE T4 T4,free(dire ct) 1.10 NG/dL 0.82-1 .77 Not Available [facility] ([facility]) [address] [place], [address], 08/31/2024 15:10:11 08/28/2008/29/2024 LIPID PANEL WITH LDL/H DL RATIO cholesterol, total 117 mg/dL 100-19 9 Not Available [facility] ([facility]) [address] [place], [address], 08/31/2024 15:10:12 08/28/2008/29/2024 LIPID PANEL WITH LDL/H DL RATIO triglyceride s 75 mg/dL 0-149 Not Available [facility] ([facility]) [address] [place], [address], 08/31/2024 15:10:12 08/28/2008/29/2024 LIPID PANEL WITH LDL/H DL RATIO HDL cholesterol 33 mg/dL >39 below low normal Not Available [facility] ([facility]) [address] [place], [address], 08/31/2024 15:10:12 08/28/2027 0808/29/2024 LIPID PANEL WITH LDL/H DL RATIO VLDL cholesterol valorie 15 mg/dL 5-40 Not Available [facility] ([facility]) [address] [place], [address], 08/31/2024 15:10:12 08/28/20 24 08/29/2024 LIPID PANEL WITH LDL/H DL RATIO LDL chol calc ([facility]) 69 mg/dL 0-99 Not Available [facility] ([facility]) [address] [facility], [place], [address], 08/31/2024 15:10:12 08/28/2008/29/2024 LIPID PANEL WITH LDL/H DL RATIO LDL/HDL ratio 2.1 ratio 0.0-3. 2 LDL/H DL Ratio Men Women 1/2 Avg.R isk 1.0 1.5 Avg.R isk 3.6 3.2 2X Avg.R isk 6.2 5.0 3X Avg.R isk 8.0 6.1 Not Available [facility] ([facility]) [address] [place], [address], 08/31/2024 15:10:12 08/28/20 24 08/31/2024 FRANCISCO+C 3+C4+ DNA/D S+ANT ICH+C EN... complement C3, serum 64 mg/dL 82-167 below low normal Not Available [facility] ([facility]) [address] [place], [address], 08/31/2024 15:10:13 08/28/20 24 08/31/2024 FRANCISCO+C 3+C4+ DNA/D S+ANT ICH+C EN... complement C4, serum 8 mg/dL 12-38 below low normal Not Available [facility] ([facility]) [address] [place], [address], 08/31/2024 15:10:13 08/28/20 24 08/31/2024 FRANCISCO+C 3+C4+ DNA/D S+ANT ICH+C EN... anti-DNA (ds) Ab qn 1 IU/mL 0-9 Negat karina <5 Equiv ocal 5 - 9 Posit karina >9 Not Available [facility] ([facility]) [address] [place], [address], 08/31/2024 15:10:13 08/28/20 24 08/31/2024 FRANCISCO+C 3+C4+ DNA/D S+ANT ICH+C EN... senior ios developer antibodies 0.8 ai 0.0-0. 9 Not Available [facility] ([facility]) [address] [place], [address], 08/31/2024 15:10:13 08/28/20 24 08/31/2024 FRANCISCO+C 3+C4+ DNA/D S+ANT ICH+C EN... garcia antibodies <0.2 ai 0.0-0. 9 Not Available [facility] ([facility]) [address] [place], [address], 08/31/2024 15:10:13 08/28/20 24 08/31/2024 FRANCISCO+C 3+C4+ DNA/D S+ANT ICH+C EN... antisclerode rma-70 antibodies <0.2 Not Available [facility] ([facility]) [address] [place], [address], 08/31/2024 15:10:13 08/28/20 24 08/31/2024 FRANCISCO+C 3+C4+ DNA/D S+ANT ICH+C EN... sjogren's anti-ss-A 4.9 ai 0.0-0. 9 above high normal Not Available [facility] ([facility]) [address] [place], [address], 08/31/2024 15:10:13 08/28/20 24 08/31/2024 FRANCISCO+C 3+C4+ DNA/D S+ANT ICH+C EN... sjogren's anti-ss-B <0.2 ai 0.0-0. 9 Not Available [facility] ([facility]) [address] [facility], [place], [address], 08/31/2024 15:10:13 08/28/20 24 08/31/2024 FRANCISCO+C 3+C4+ DNA/D S+ANT ICH+C EN... antichromati n antibodies 4.0 ai 0.0-0. 9 above high normal Not Available [facility] ([facility]) [address] [facility], [place], [address], 08/31/2024 15:10:13 08/28/2008/31/2024 FRANCISCO+C 3+C4+ DNA/D S+ANT ICH+C EN... anti-junior-1 <0.2 ai 0.0-0. 9 Not Available [facility] ([facility]) [address] [place], [address], 08/31/2024 15:10:13 08/28/2008/31/2024 FRANCISCO+C 3+C4+ DNA/D S+ANT ICH+C EN... anti-centrom ere B antibodies <0.2 Not Available [facility] ([facility]) [address] [facility], [place], [address], 08/31/2024 15:10:13 08/28/20 24 08/29/2024 COMP. METAB OLIC PANEL (14) glucose 78 mg/dL 70-99 Not Available [facility] ([facility]) [address] [place], [address], 08/31/2024 15:10:14 08/28/20 24 08/29/2024 COMP. METAB OLIC PANEL (14) BUN 17 mg/dL 6-20 Not Available [facility] ([facility]) [address] [place], [address], 08/31/2024 15:10:14 08/28/20 24 08/29/2024 COMP. METAB OLIC PANEL (14) creatinine 1.22 mg/dL 0.57-1 .00 above high normal Not Available [facility] ([facility]) [address] [facility], [place], [address], 08/31/2024 15:10:14 08/28/20 24 08/29/2024 COMP. METAB OLIC PANEL (14) eGFR 59 mL/mi n/1.7 3 >59 below low normal Not Available [facility] ([facility]) [address] [facility], [place], [address], 08/31/2024 15:10:14 08/28/20 24 08/29/2024 COMP. METAB OLIC PANEL (14) BUN/creatini ne ratio 14 9-23 Not Available [facility] ([facility]) [address] [facility], [place], [address], 08/31/2024 15:10:14 08/28/20 24 08/29/2024 COMP. METAB OLIC PANEL (14) sodium 140 mmol/ L 134-14 4 Not Available [facility] ([facility]) [address] [facility], [place], [address], 08/31/2024 15:10:14 08/28/20 24 08/29/2024 COMP. METAB OLIC PANEL (14) potassium 4.5 mmol/ L 3.5-5. 2 Not Available [facility] ([facility]) [address] [facility], [place], [address], 08/31/2024 15:10:14 08/28/20 24 08/29/2024 COMP. METAB OLIC PANEL (14) chloride 113 mmol/ L 96-106 above high normal Not Available [facility] ([facility]) [address] [facility], [place], [address], 08/31/2024 15:10:14 08/28/20 24 08/29/2024 COMP. METAB OLIC PANEL (14) carbon dioxide, total 16 mmol/ L 20-29 below low normal Not Available [facility] ([facility]) [address] [place], [address], 08/31/2024 15:10:14 08/28/20 24 08/29/2024 COMP. METAB OLIC PANEL (14) calcium 8.6 mg/dL 8.7-10 .2 below low normal Not Available [facility] ([facility]) [address] [place], [address], 08/31/2024 15:10:14 08/28/2008/29/2024 COMP. METAB OLIC PANEL (14) protein, total 7.7 g/dL 6.0-8. 5 Not Available [facility] ([facility]) [address] [place], [address], 08/31/2024 15:10:14 08/28/20 24 08/29/2024 COMP. METAB OLIC PANEL (14) albumin 3.9 g/dL 3.9-4. 9 Not Available [facility] ([facility]) [address] [place], [address], 08/31/2024 15:10:14 08/28/20 24 08/29/2024 COMP. METAB OLIC PANEL (14) globulin, total 3.8 g/dL 1.5-4. 5 Not Available [facility] ([facility]) [address] [place], [address], 08/31/2024 15:10:14 08/28/20 24 08/29/2024 COMP. METAB OLIC PANEL (14) bilirubin, total 0.3 mg/dL 0.0-1. 2 Not Available [facility] ([facility]) [address] [place], [address], 08/31/2024 15:10:14 08/28/20 24 08/29/2024 COMP. METAB OLIC PANEL (14) alkaline phosphatase 80 IU/L 44-121 Not Available [facility] ([facility]) [address] [place], [address], 08/31/2024 15:10:14 08/28/20 24 08/29/2024 COMP. METAB OLIC PANEL (14) AST (SGOT) 24 IU/L 0-40 Not Available [facility] ([facility]) [address] [place], [address], 08/31/2024 15:10:14 08/28/20 24 08/29/2024 COMP. METAB OLIC PANEL (14) ALT (SGPT) 10 IU/L 0-32 Not Available [facility] ([facility]) [address] [facility], [place], [address], 08/31/2024 15:10:14 08/28/2008/30/2024 HEMOG LOBIN A1C hemoglobin A1C <4.2 % 4.8-5. 6 below low normal Aly ified by repea t ady sis Predi abete s: 5.7 - 6.4 Diabe sole: >6.4 Glyce vandana contr ol for adult s with diabe sole: <7.0 Not Available [facility] ([facility]) [address] [facility], [place], [address], 08/31/2024 15:10:15 08/28/2008/29/2024 CBC WITH DIFFE RENTI AL/PL ATELE T WBC 1.9 x10e3 /uL 3.4-10 .8 alert low Not Available [facility] ([facility]) [address] [place], [address], 08/31/2024 15:10:17 08/28/2008/29/2024 CBC WITH DIFFE RENTI AL/PL ATELE T RBC 2.98 x10e6 /uL 3.77-5 .28 below low normal Few tear drops . Ovalo cytes prese nt. Not Available [facility] ([facility]) [address] [facility], [place], [address], 08/31/2024 15:10:17 08/28/2008/29/2024 CBC WITH DIFFE RENTI AL/PL ATELE T hemoglobin 7.7 g/dL 11.1-1 5.9 below low normal Not Available [facility] ([facility]) [address] [facility], [place], [address], 08/31/2024 15:10:17 08/28/2008/29/2024 CBC WITH DIFFE RENTI AL/PL ATELE T hematocrit 26.2 % 34.0-4 6.6 below low normal Not Available [facility] ([facility]) [address] [facility], [place], [address], 08/31/2024 15:10:17 08/28/2008/29/2024 CBC WITH DIFFE RENTI AL/PL ATELE T MCV 88 fL 79-97 Not Available [facility] ([facility]) [address] [place], [address], 08/31/2024 15:10:17 08/28/2008/29/2024 CBC WITH DIFFE RENTI AL/PL ATELE T MCH 25.8 pg 26.6-3 3.0 below low normal Not Available [facility] ([facility]) [address] [place], [address], 08/31/2024 15:10:17 08/28/2008/29/2024 CBC WITH DIFFE RENTI AL/PL ATELE T MCHC 29.4 g/dL 31.5-3 5.7 below low normal Not Available [facility] ([facility]) [address] [place], [address], 08/31/2024 15:10:17 08/28/20 24 08/29/2024 CBC WITH DIFFE RENTI AL/PL ATELE T RDW 19.6 % 11.7-1 5.4 above high normal Not Available [facility] ([facility]) [address] [facility], [place], [address], 08/31/2024 15:10:17 08/28/20 24 08/29/2024 CBC WITH DIFFE RENTI AL/PL ATELE T platelets 133 x10e3 /uL 150-45 0 below low normal Not Available [facility] ([facility]) [address] [facility], [place], [address], 08/31/2024 15:10:17 08/28/20 24 08/29/2024 CBC WITH DIFFE RENTI AL/PL ATELE T neutrophils 46 % notest ab. Not Available [facility] ([facility]) [address] [facility], [place], [address], 08/31/2024 15:10:17 08/28/20 24 08/29/2024 CBC WITH DIFFE RENTI AL/PL ATELE T lymphs 35 % notest ab. Not Available [facility] ([facility]) [address] [facility], [place], [address], 08/31/2024 15:10:17 08/28/20 24 08/29/2024 CBC WITH DIFFE RENTI AL/PL ATELE T monocytes 16 % notest ab. Not Available [facility] ([facility]) [address] [facility], [place], [address], 08/31/2024 15:10:17 08/28/20 24 08/29/2024 CBC WITH DIFFE RENTI AL/PL ATELE T eos 1 % notest ab. Not Available [facility] ([facility]) [address] [facility], [place], [address], 08/31/2024 15:10:17 08/28/20 24 08/29/2024 CBC WITH DIFFE RENTI AL/PL ATELE T basos 2 % notest ab. Not Available [facility] ([facility]) [address] [facility], [place], [address], 08/31/2024 15:10:17 08/28/20 24 08/29/2024 CBC WITH DIFFE RENTI AL/PL ATELE T neutrophils (absolute) 0.9 x10e3 /uL 1.4-7. 0 below low normal Not Available [facility] ([facility]) [address] [place], [address], 08/31/2024 15:10:17 08/28/20 24 08/29/2024 CBC WITH DIFFE RENTI AL/PL ATELE T lymphs (absolute) 0.7 x10e3 /uL 0.7-3. 1 Not Available [facility] ([facility]) [address] [place], [address], 08/31/2024 15:10:17 08/28/20 24 08/29/2024 CBC WITH DIFFE RENTI AL/PL ATELE T monocytes(ab solute) 0.3 x10e3 /uL 0.1-0. 9 Not Available [facility] ([facility]) [address] [place], [address], 08/31/2024 15:10:17 08/28/20 24 08/29/2024 CBC WITH DIFFE RENTI AL/PL ATELE T eos (absolute) 0.0 x10e3 /uL 0.0-0. 4 Not Available [facility] ([facility]) [address] [place], [address], 08/31/2024 15:10:17 08/28/20 24 08/29/2024 CBC WITH DIFFE RENTI AL/PL ATELE T baso (absolute) 0.0 x10e3 /uL 0.0-0. 2 Not Available [facility] ([facility]) [address] [place], [address], 08/31/2024 15:10:17 08/28/20 24 08/29/2024 CBC WITH DIFFE RENTI AL/PL ATELE T hematology comments: NOTE: Sylvester quintero diffe renti al was perfo rmed. Cellu lar Degen erati on Noted . Not Available [facility] ([facility]) [address] [facility], [place], [address], 08/31/2024 15:10:17 01/23/20 25 01/23/2025 HCV ANTIB JOSIAH hep C virus Ab NON REACTI VE nonrea ctive HCV antib josiah alone does not diffe renti ate betwe en previ ously resol светлана infec tion and activ e infec tion. Equiv ocal and React karina HCV antib josiah resul ts shoul d be follo wed up with an HCV RNA test to suppo rt the diagn osis of activ e HCV infec tion. Not Available [facility] ([facility]) [address] [facility], [place], [address], 01/25/2025 06:08:44 01/23/20 25 01/25/2025 CT, NG, TRICH VAG BY ERICA chlamydia by ERICA POSITI VE negati ve abnormal Not Available [facility] ([facility]) [address] [place], [address], 01/25/2025 06:08:45 01/23/20 25 01/25/2025 CT, NG, TRICH VAG BY ERICA gonococcus by ERICA NEGATI VE negati ve Not Available [facility] ([facility]) [address] [place], [address], 01/25/2025 06:08:45 01/23/20 25 01/25/2025 CT, NG, TRICH VAG BY ERICA trich vag by ERICA NEGATI VE negati ve Not Available [facility] ([facility]) [address] [place], [address], 01/25/2025 06:08:45 01/23/20 25 01/23/2025 TSH+F REE T4 TSH 1.430 uIU/m L 0.450- 4.500 Not Available [facility] ([facility]) [address] [place], [address], 01/25/2025 06:08:46 01/23/20 25 01/23/2025 TSH+F REE T4 T4,free(dire ct) 1.18 NG/dL 0.82-1 .77 Not Available [facility] ([facility]) [address] [place], [address], 01/25/2025 06:08:46 01/23/20 25 01/23/2025 LIPID PANEL WITH LDL/H DL RATIO cholesterol, total 115 mg/dL 100-19 9 Not Available [facility] ([facility]) [address] [place], [address], 01/25/2025 06:08:47 01/23/20 25 01/23/2025 LIPID PANEL WITH LDL/H DL RATIO triglyceride s 73 mg/dL 0-149 Not Available [facility] ([facility]) [address] [place], [address], 01/25/2025 06:08:47 01/23/20 25 01/23/2025 LIPID PANEL WITH LDL/H DL RATIO HDL cholesterol 34 mg/dL >39 below low normal Not Available [facility] ([facility]) [address] [place], [address], 01/25/2025 06:08:47 01/23/20 25 01/23/2025 LIPID PANEL WITH LDL/H DL RATIO VLDL cholesterol valorie 15 mg/dL 5-40 Not Available [facility] ([facility]) [address] [place], [address], 01/25/2025 06:08:47 01/23/20 25 01/23/2025 LIPID PANEL WITH LDL/H DL RATIO LDL chol calc ([facility]) 66 mg/dL 0-99 Not Available [facility] ([facility]) [address] [place], [address], 01/25/2025 06:08:47 01/23/20 25 01/23/2025 LIPID PANEL WITH LDL/H DL RATIO LDL/HDL ratio 1.9 ratio 0.0-3. 2 LDL/H DL Ratio Men Women 1/2 Avg.R isk 1.0 1.5 Avg.R isk 3.6 3.2 2X Avg.R isk 6.2 5.0 3X Avg.R isk 8.0 6.1 Not Available [facility] ([facility]) [address] [place], [place], [address], 01/25/2025 06:08:47 01/23/20 25 01/23/2025 COMP. METAB OLIC PANEL (14) glucose 70 mg/dL 70-99 Not Available [facility] ([facility]) [address] [place], [address], 01/25/2025 06:08:48 01/23/20 25 01/23/2025 COMP. METAB OLIC PANEL (14) BUN 10 mg/dL 6-20 Not Available [facility] ([facility]) [address] [place], [address], 01/25/2025 06:08:48 01/23/20 25 01/23/2025 COMP. METAB OLIC PANEL (14) creatinine 1.39 mg/dL 0.57-1 .00 above high normal Not Available [facility] ([facility]) [address] [place], [address], 01/25/2025 06:08:48 01/23/20 25 01/23/2025 COMP. METAB OLIC PANEL (14) eGFR 50 mL/mi n/1.7 3 >59 below low normal Not Available [facility] ([facility]) [address] [place], [address], 01/25/2025 06:08:48 01/23/20 25 01/23/2025 COMP. METAB OLIC PANEL (14) BUN/creatini ne ratio 7 9-23 below low normal Not Available [facility] ([facility]) [address] [place], [address], 01/25/2025 06:08:48 01/23/20 25 01/23/2025 COMP. METAB OLIC PANEL (14) sodium 136 mmol/ L 134-14 4 Not Available [facility] ([facility]) [address] [place], [address], 01/25/2025 06:08:48 01/23/20 25 01/23/2025 COMP. METAB OLIC PANEL (14) potassium 4.0 mmol/ L 3.5-5. 2 Not Available [facility] ([facility]) [address] [place], [address], 01/25/2025 06:08:48 01/23/20 25 01/23/2025 COMP. METAB OLIC PANEL (14) chloride 105 mmol/ L 96-106 Not Available [facility] ([facility]) [address] [place], [address], 01/25/2025 06:08:48 01/23/20 25 01/23/2025 COMP. METAB OLIC PANEL (14) carbon dioxide, total 16 mmol/ L 20-29 below low normal Not Available [facility] ([facility]) [address] [place], [address], 01/25/2025 06:08:48 01/23/20 25 01/23/2025 COMP. METAB OLIC PANEL (14) calcium 8.8 mg/dL 8.7-10 .2 Not Available [facility] ([facility]) [address] [facility] [place], [address], 01/25/2025 06:08:48 01/23/20 25 01/23/2025 COMP. METAB OLIC PANEL (14) protein, total 7.8 g/dL 6.0-8. 5 Not Available [facility] ([facility]) [address] [facility] [place], [address], 01/25/2025 06:08:48 01/23/20 25 01/23/2025 COMP. METAB OLIC PANEL (14) albumin 3.8 g/dL 3.9-4. 9 below low normal Not Available [facility] ([facility]) [address] [facility], [place], [address], 01/25/2025 06:08:48 01/23/20 25 01/23/2025 COMP. METAB OLIC PANEL (14) globulin, total 4.0 g/dL 1.5-4. 5 Not Available [facility] ([facility]) [address] [facility], [place], [address], 01/25/2025 06:08:48 01/23/20 25 01/23/2025 COMP. METAB OLIC PANEL (14) bilirubin, total 0.7 mg/dL 0.0-1. 2 Not Available [facility] ([facility]) [address] [place], [address], 01/25/2025 06:08:48 01/23/20 25 01/23/2025 COMP. METAB OLIC PANEL (14) alkaline phosphatase 66 IU/L 44-121 Not Available [facility] ([facility]) [address] [facility], [place], [address], 01/25/2025 06:08:48 01/23/20 25 01/23/2025 COMP. METAB OLIC PANEL (14) AST (SGOT) 20 IU/L 0-40 Not Available [facility] ([facility]) [address] [place], [address], 01/25/2025 06:08:48 01/23/20 25 01/23/2025 COMP. METAB OLIC PANEL (14) ALT (SGPT) 25 IU/L 0-32 Not Available [facility] ([facility]) [address] [place], [address], 01/25/2025 06:08:48 01/23/20 25 01/23/2025 HEMOG LOBIN A1C hemoglobin A1C <4.2 % 4.8-5. 6 below low normal Aly ified by reynaa yash ady sis Predi abete s: 5.7 - 6.4 Diabe sole: >6.4 Glyce vandana contr ol for adult s with diabe sole: <7.0 Not Available [facility] ([facility]) [address] [facility], [place], [address], 01/25/2025 06:08:49 01/23/20 25 01/23/2025 CBC WITH DIFFE RENTI AL/PL ATELE T WBC 3.9 x10e3 /uL 3.4-10 .8 Not Available [facility] ([facility]) [address] [facility], [place], [address], 01/25/2025 06:08:50 01/23/20 25 01/23/2025 CBC WITH DIFFE RENTI AL/PL ATELE T RBC 2.61 x10e6 /uL 3.77-5 .28 alert low Not Available [facility] ([facility]) [address] [place], [address], 01/25/2025 06:08:50 01/23/20 25 01/23/2025 CBC WITH DIFFE RENTI AL/PL ATELE T hemoglobin 6.7 g/dL 11.1-1 5.9 alert low Not Available [facility] ([facility]) [address] [place], [address], 01/25/2025 06:08:50 01/23/20 25 01/23/2025 CBC WITH DIFFE RENTI AL/PL ATELE T hematocrit 22.5 % 34.0-4 6.6 below low normal Not Available [facility] ([facility]) [address] [place], [address], 01/25/2025 06:08:50 01/23/20 25 01/23/2025 CBC WITH DIFFE RENTI AL/PL ATELE T MCV 86 fL 79-97 Not Available [facility] ([facility]) [address] [place], [address], 01/25/2025 06:08:50 01/23/20 25 01/23/2025 CBC WITH DIFFE RENTI AL/PL ATELE T MCH 25.7 pg 26.6-3 3.0 below low normal Not Available [facility] ([facility]) [address] [place], [address], 01/25/2025 06:08:50 01/23/20 25 01/23/2025 CBC WITH DIFFE RENTI AL/PL ATELE T MCHC 29.8 g/dL 31.5-3 5.7 below low normal Not Available [facility] ([facility]) [address] [place], [address], 01/25/2025 06:08:50 01/23/20 25 01/23/2025 CBC WITH DIFFE RENTI AL/PL ATELE T RDW 21.0 % 11.7-1 5.4 above high normal Not Available [facility] ([facility]) [address] [place], [address], 01/25/2025 06:08:50 01/23/20 25 01/23/2025 CBC WITH DIFFE RENTI AL/PL ATELE T platelets 216 x10e3 /uL 150-45 0 Not Available [facility] ([facility]) [address] [place], [address], 01/25/2025 06:08:50 01/23/20 25 01/23/2025 CBC WITH DIFFE RENTI AL/PL ATELE T neutrophils 50 % notest ab. Not Available [facility] ([facility]) [address] [place], [address], 01/25/2025 06:08:50 01/23/20 25 01/23/2025 CBC WITH DIFFE RENTI AL/PL ATELE T lymphs 37 % notest ab. Not Available [facility] ([facility]) [address] [facility], [place], [address], 01/25/2025 06:08:50 01/23/20 25 01/23/2025 CBC WITH DIFFE RENTI AL/PL ATELE T monocytes 11 % notest ab. Not Available [facility] ([facility]) [address] [facility], [place], [address], 01/25/2025 06:08:50 01/23/20 25 01/23/2025 CBC WITH DIFFE RENTI AL/PL ATELE T eos 1 % notest ab. Not Available [facility] ([facility]) [address] [facility], [place], [address], 01/25/2025 06:08:50 01/23/20 25 01/23/2025 CBC WITH DIFFE RENTI AL/PL ATELE T basos 1 % notest ab. Not Available [facility] ([facility]) [address] [facility], [place], [address], 01/25/2025 06:08:50 01/23/20 25 01/23/2025 CBC WITH DIFFE RENTI AL/PL ATELE T neutrophils (absolute) 2.0 x10e3 /uL 1.4-7. 0 Not Available [facility] ([facility]) [address] [place], [address], 01/25/2025 06:08:50 01/23/20 25 01/23/2025 CBC WITH DIFFE RENTI AL/PL ATELE T lymphs (absolute) 1.5 x10e3 /uL 0.7-3. 1 Not Available [facility] ([facility]) [address] [place], [address], 01/25/2025 06:08:50 01/23/20 25 01/23/2025 CBC WITH DIFFE RENTI AL/PL ATELE T monocytes(ab solute) 0.4 x10e3 /uL 0.1-0. 9 Not Available [facility] ([facility]) [address] [facility], [place], [address], 01/25/2025 06:08:50 01/23/20 25 01/23/2025 CBC WITH DIFFE RENTI AL/PL ATELE T eos (absolute) 0.0 x10e3 /uL 0.0-0. 4 Not Available [facility] ([facility]) [address] [facility], [place], [address], 01/25/2025 06:08:50 01/23/20 25 01/23/2025 CBC WITH DIFFE RENTI AL/PL ATELE T baso (absolute) 0.0 x10e3 /uL 0.0-0. 2 Not Available [facility] ([facility]) [address] [facility], [place], [address], 01/25/2025 06:08:50 01/23/20 25 01/23/2025 CBC WITH DIFFE RENTI AL/PL ATELE T immature granulocytes 0 % notest ab. Not Available [facility] ([facility]) [address] [facility], [place], [address], 01/25/2025 06:08:50 01/23/20 25 01/23/2025 CBC WITH DIFFE RENTI AL/PL ATELE T immature grans (abs) 0.0 x10e3 /uL 0.0-0. 1 Not Available [facility] ([facility]) [address] [facility], [place], [address], 01/25/2025 06:08:50 01/23/20 25 01/23/2025 RPR, RFX QN RPR/C ONFIR M TP RPR NON REACTI VE nonrea ctive Not Available [facility] ([facility]) [address] [facility], [place], [address], 01/25/2025 06:08:52 01/23/20 25 01/23/2025 HIV AB/P2 4 AG WITH REFLE X HIV Ab/P24 Ag screen NON REACTI VE nonrea ctive HIV-1 /HIV- 2 antib odies and HIV-1 p24 antig en were NOT detec felicity. There is no labor atory evide nce of HIV infec tion. HIV Negat karina Not Available [facility] ([facility]) [address] [facility], [place], [address], 01/25/2025 06:08:53 Result Notes None recorded. 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 Procedures Surgical History Date Name Laterality Status Provider Name and Address Organization Details Recorded Time 6 Date of Last Pap Smear completed Jude Amado ID - [facility] 10/09/2016 18:28:47 5 Caesarean Section completed Shelly Urrutia MA ID - [facility] 12/08/2014 16:43:23 5 Tubal Ligation completed Jude Amado ID - [facility] 12/08/2014 22:00:25 3 Caesarean Section completed Shelly Urrutia MA ID - [facility] 11/18/2014 12:12:18 9 Caesarean Section completed Shelly Urrutia MA [facility] 11/18/2014 12:12:18 Imaging Results None recorded. Procedure Notes None recorded. Medical Equipment None Reported. Allergies No known drug allergies Medications Name Sig Start Date Stop Date Status Note LastModified by Organization Details LastModified Time Colace 100 mg capsule Take 1 capsule every day by oral route as needed. 06/30 completed Not Available Not Available Not Available azithromycin 250 mg tablet 06/30 completed Not Available Not Available Not Available alclometason e 0.05 % topical cream active Not Available Not Available Not Available mycophenolat e mofetil 500 mg tablet TAKE 3 TABLETS BY MOUTH IN THE MORNING AND 3 BEFORE BEDTIME active Not Available Not Available No t Available amoxicillin 875 mg tablet 10/05 completed Not Available Not Available Not Available gentamicin 0.3 % eye drops 10/05 completed Not Available Not Available Not Available sodium bicarbonate 650 mg tablet 06/30 completed Not Available Not Available Not Available naproxen sodium 550 mg tablet 01/13 completed Not Available Not Available Not Available tacrolimus 0.1 % topical ointment active Not Available Not Available Not Available folic acid 1 mg tablet 06/30 completed Not Available Not Available Not Available hydroxychlor oquine 200 mg tablet TAKE 1 TABLET BY MOUTH ONCE DAILY IN THE MORNING AND 1 TAB BY MOUTH BEFORE BEDTIME active Not Available Not Available No t Available ondansetron 4 mg disintegrati ng tablet 06/30 completed Not Available Not Available Not Available doxycycline hyclate 100 mg tablet Take 1 tablet twice a day by oral route with meal(s) for 7 days. 2024 active Not Available Not Available Not Avai lable oxycodone 5 mg tablet 01/13 completed Not Available Not Available Not Available Se-Kaylah 19 (with docusate) 29 mg iron-1 mg-25 mg tablet 06/30 completed Not Available Not Available Not Available Vitals Date Recorded Body height Body mass index (BMI) Body weight Oxygen saturation Oxygen saturation in Arterial blood by Pulse oximetry Respiratory rate Systolic blood pressure Diastolic blood pressure Provider Name and Address Organization Details Last Updated DateTime 4 165.1 cm 26.3 kg/m2 84140.2 9 g 100 % 100 % 17 /min 122 mm[Hg] 82 mm[Hg] Tuyet Sparrow [facility] 4 14:13:21 Date Recorded Heart rate Provider Name an d Address Organization Details Last Updated DateTime 06/30/2024 95 /min ZORAIDA IYER Attn: Accounting,[address] [place], [address], [facility] 07/01/2024 08:29:39 Date Recorded Body height Body mass index (BMI) Body weight Oxygen saturation Oxygen saturation in Arterial blood by Pulse oximetry Heart rate Respiratory rate Systolic blood pressure Diastolic blood pressure Provider Name and Address Organization Details Last Updated DateTime 4 165.1 cm 26 kg/m2 09528.4 1 g 99 % 99 % 93 /min 16 /min 107 mm[Hg] 71 mm[Hg] Thea Cha [facility] 4 08:31:29 Date Recorded Body height Body mass index (BMI) Body weight Oxygen saturation Oxygen saturation in Arterial blood by Pulse oximetry Heart rate Respiratory rate Systolic blood pressure Diastolic blood pressure Provider Name and Address Organization Details Last Updated DateTime 5 165.1 cm 28.5 kg/m2 19090.3 g 97 % 97 % 96 /min 16 /min 110 mm[Hg] 76 mm[Hg] Thea Cha [facility] 5 09:07:46 Date Recorded Body weight Body height Body mass index (BMI) Systolic blood pressure Diastolic blood pressure Provider Name and Address Organization Details Last Updated DateTime 10/05/2016 03145.14 g 162.56 cm 31.6 kg/m2 120 mm[Hg] 72 mm[Hg] Nancy Urrutia [facility] 6 09:50:09 Date Recorded Body height Body weight Body mass index (BMI) Oxygen saturation Oxygen saturation in Arterial blood by Pulse oximetry Heart rate Body temperature Systolic blood pressure Diastolic blood pressure Provider Name and Address Organization Details Last Updated DateTime 7 162.56 cm 58373.9 9 g 31.8 kg/m2 98 % 98 % 70 /min 98.7 [degF] 120 mm[Hg] 70 mm[Hg] Magaly bull [facility] 7 14:11:57 Social History Question Answer Notes LastModified by Organizat ion Details LastModified Time Tobacco Smoking Status Never Smoker Jude jackson, [place] - [facility] 09/22/2014 15:05:57 What Is Your Level Of Alcohol Consumption? Occasional Information not available 06/30/2024 If You Are , What Was Your Level Of Alcohol Consumption Prior To ? None Information not available 12/08/2014 Is Anesthesia Consult Planned? Yes Information not available 12/08/2014 Plan Yes Information no t available 12/08/2014 Is Blood Transfusion Acceptable In An Emergency? Yes Information not available 12/08/2014 What Is Your Level Of Caffeine Consumption? None Information not available 12/08/2014 Can Child Swim? No Informat ion not available 11/22/2016 Live With Cats/exposure To Cat Litter No Information not available 12/08/2014 How Much Tobacco Do You Chew? None Information not available 12/08/2014 Are You Currently Employed? Yes Information not available 12/08/2014 What Type Of Diet Are You Following? REGULAR Information not available 12/08/2014 Which Illicit Or Recreational Drugs Have You Used? No Information not available 10/05/2016 Education 2 Year College Informatio n not available 12/08/2014 Swimming/diving No Informat ion not available 11/22/2016 Have There Been Any Changes To Your Family Or Social Situation? No Information no t available 12/08/2014 Frequent Air Travel No Information not available 12/08/2014 Are There Any Guns Present In Your Home? No Information not available 11/22/2016 Hard Of Hearing Or Deaf In One Or Both Ears? No Information not available 11/22/2016 Illicit Drugs Pre- N/A Information not available 12/08/2014 Legally Blind In One Or Both Eyes? No Information no t available 11/22/2016 Live Alone Or With Others? With Others Information not available 12/08/2014 Marital Status Informatio n not available 12/08/2014 What Was The Date Of Your Most Recent Tobacco Screening? 06/30/2024 Information not available 06/30/2024 How Many Children Do You Have? 3 Information not available 12/08/2014 Performs Monthly Self-breast Exam? No Information no t available 10/05/2016 Do You Use Protection During Sex? No Information not available 10/05/2016 What Is Your Relationship Status? Information not available 10/05/2016 Seat Belts Used Routinely Yes Information not available 12/08/2014 Are You Sexually Active? Yes Information not available 12/08/2014 Smoke Alarm In Home Yes Information not available 11/22/2016 Do You Have Smoke And Carbon Monoxide Detectors In Your Home? Yes Information not available 12/08/2014 Are You Passively Exposed To Smoke? No Information no t available 12/08/2014 How Much Tobacco Do You Smoke? No Information not available 12/08/2014 Smoking Pre- No Information not available 12/08/2014 General Stress Level Low Information not available 12/08/2014 Do You Use Any Illicit Or Recreational Drugs? No Information not available 06/30/2024 Do You Use Sunscreen Routinely? No Information not available 12/08/2014 Sex: Unknown Functional Status Question Answer Note LastModified by Organizat ion Details LastModified Time What is your exercise level? Occasional Information not available 12/08/2014 Mental Status None recorded. Family History Nothing Reported Notes:father had heart surge ry--unsure why Medical History Condition Response Heart Problems N Other N Breast Cancer N Kidney or Bladder Problems N Thyroid Problems N GI Problems N Lung Disease N Depression N Acne N Eating Disorder N Breast Problem N Anemia N Anesthesia Complications N Headaches/Migraines N Anxiety Disorder N Ovarian Cancer N Diabetes N Blood Transfusions N Arthritis N Infertility N Polyps N Acid Reflux (GERD) N Cancer N Stroke N Abuse/Domestic Violence N Asthma N Endometriosis N High Cholesterol N Hepatitis N Heart Disease N Fibromyalgia N Pre-Eclampsia N Hypertension N Osteoporosis N Kidney Disease N Gynecological History Statement/Question Response Abnormal Pap N Flow Heavy Date of LMP 06/09/2024 STIs/STDs N HPV Vaccine N Duration of Flow (days) 5 Age at Menarche 15 Current Control Method Tubal Ligat ion Age at First Child 23 Frequency of Cycle (Q days) 30 Sexually Active? Y Menses Monthly Yes Date of Last Pap Smear 10/05/2016 Sexual Problems? Y LMP Approximate Desired Control Method Sterilizati on Obstetrics History GPAL:G 3 P 3 0 0 3 Type Value Multiple Births 0 Full Term 3 Induced 0 Spontaneous 0 Premature 0 Living 3 Ectopics 0 Total 3 Immunizations Vaccine Type Date Status Note Provider Nam e and Address Organization Details Recorded Time Tdap 05/03/2009 [place] [facility] 11/22/2016 17:05:46 Tdap 09/03/2013 [place] [facility] 11/22/2016 17:06:04 Tdap 11/27/2014 margaret [place]illes[place] [facility] 11/22/2016 17:06:35 DTaP 1986 margaret [place] [facility] 11/22/2016 17:06:56 DTaP 11/08/1988 margaret [place] [facility] 11/22/2016 17:07:06 DTaP 07/28/1991 margaret [place] [facility] 11/22/2016 17:07:11 DTaP 09/02/1992 [place]AR[place] [facility] 11/22/2016 17:07:18 DTaP 06/09/1993 margaret [place] [facility] 11/22/2016 17:07:24 Hep B, adolescent or pediatric 06/10/1997 [place] [facility] 11/22/2016 17:07:40 Hep B, adolescent or pediatric 09/08/1998 margaret [place]illes[place] [facility] 11/22/2016 17:07:49 Hep B, adolescent or pediatric 10/13/1999 [place] [facility] 11/22/2016 17:07:54 MMR 09/02/1992 [place] [facility] 11/22/2016 17:08:05 polio, unspecified formulation 1986 completed Niurka Gillespie [place] [facility] 11/22/2016 17:08:20 polio, unspecified formulation 11/08/1988 completed Niurka [place] [facility] 11/22/2016 17:08:26 polio, unspecified formulation 09/02/1992 completed Niurka [place] [facility] 11/22/2016 17:08:34 polio, unspecified formulation 06/09/1993 completed Niurka [place] [facility] 11/22/2016 17:08:40 Td(adult) unspecified formulation 06/18/2003 completed Niurka [place] [facility] 11/22/2016 17:08:58 Past Encounters Encounter ID Performer Location Encounter Start Date Encounter Closed Date Diagnosis/Indication Diagnosis SNOMED-CT Code Diagnosis ICD10 Code Diagnosis Note [id number] Rhea Portillo [facility] (FRONT OF HOUSE MANA[facility]) [address] [place] [address] 09/22/2014 14:00:02 09/22/2014 17:17:22 Routine care [id number] [facility] flow chart on paper [id number] Jude Portillo [facility] (FRONT OF HOUSE MANAGER) [address] [place] [phone] 10/22/2014 13:48:42 10/22/2014 16:58:21 Routine care [id number] [facility] flow chart on paper [id number] Tara Portillo [facility] (FRONT OF HOUSE MANAGER) [address] [place] [address] 11/18/2014 11:49:12 11/18/2014 13:19:53 Routine care [id number] ACOG flow chart on paper [id number] Lindsey [facility] (FRONT OF HOUSE MANAGER) [address] [place] [address] 12/08/2014 15:16:06 12/13/2014 17:25:58 Postoperative visit [id number] Tara Portillo [facility] (FRONT OF HOUSE MANAGER) [address] [place] [address] 01/12/2015 13:57:38 01/12/2015 15:19:22 care [id number] Jude Amado [facility] (FRONT OF HOUSE MANAGER) [address] [place] [address] 10/05/2016 09:20:03 11/01/2016 12:17:22 Gynecologic examination 61085274 Z01.419 Abnormal u terine bleeding 7536490274 9100 N93.9 [id number] Yesi Rivas NP-C [facility] (Family Med) [address] [place] [address] 11/22/2016 13:49:49 11/26/2016 10:49:33 Adult health examination 905262962 Z00.00 Irregular bowel habits 870858309 R19.4 Mood swings 39916843 R45 .86 [id number] ZORAIDA IYER [facility] [address] [place] [address] 06/30/2024 14:03:56 06/30/2024 14:51:50 Systemic lupus erythematosus 00366175 M32.9 diagnosed in 2019was receiving saphnelo infusions that controlled her lupusrefer to new Rheum OV 03/20/24 with Rheum in [place] 1. Rheumatoid arthritis involving multiple sites with positive rheumatoid factor (HC)Ryan berrios has no acute swelling of her joints at this visit. Patient has some deformitie s of her fingers related to her inflammato ry arthritis symptoms. Patient has good control of her inflammato ry arthritis with her current medication s. She will continue her current regimen of medication s for her autoimmune disorder. Ordered labs today2. Lupus nephritis, ISN/RPS class V (HC)Ryan berrios has no evidence of exacerbati ons of her nephritis noted at this visit. She is not currently having acute problems with her kidneys and she is seeing Dr Meliton Foster for her kidney care. Ordered labs today3. Raynaud's disease without gangrenePa tierebel has some evidence of damage to her fingers related to her Raynaud's disease. Patient states she has episodic occurrence of her raynaud's, and she is still avoids cold exposure to decrease exacerbati on of her Raynaud's. 4. 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 refer to nephro Screening for malignant neoplasm of cervix 511668331 Z12.4 will schedule Overweight 415222094 E66 .3 BMI 26.3discus sed increasing exercise and healthier food options, high protein, low fat dietpt will make nurse visit for labs- CBC, CMP, lipid, TSH, T4, a1c Depression screening 171 042332 Z13.31 2 Raynaud's disease 198713 006 I73.00 per patient controlled Sj gren's syndrome 81348385 M35.00 per patient controlled [id number] ZORAIDA IYER [facility] [address] [place] [address] 08/28/2024 08:28:20 08/28/2024 08:56:43 Systemic lupus erythematosus 81374014 M32.9 08/28/24: can refer to [facility] once we have results of blood workreques ting FMLA- 2 days of work per week, 8 hrs per episode and 2 hrs for Drs appts for 6 months at a time 06/30/24: diagnosed in 2019was receiving saphnelo infusions that controlled her [facility] OV 03/20/24 with Rheum in [place] 1. Rheumatoid arthritis involving multiple sites with positive rheumatoid factor (HC)Ryan berrios has no acute swelling of her joints at this visit. Patient has some deformitie s of her fingers related to her inflammato ry arthritis symptoms. Patient has good control of her inflammato ry arthritis with her current medication s. She will continue her current regimen of medication s for her autoimmune disorder. Ordered labs today2. Lupus nephritis, ISN/RPS class V (HC)Ryan berrios has no evidence of exacerbati ons of her nephritis noted at this visit. She is not currently having acute problems with her kidneys and she is seeing Dr Meliton Foster for her kidney care. Ordered labs today3. Raynaud's disease without gangrenePa tierebel has some evidence of damage to her fingers related to her Raynaud's disease. Patient states she has episodic occurrence of her raynaud's, and she is still avoids cold exposure to decrease exacerbati on of her Raynaud's. 4. Sjogren's syndrome with other organ involvemen t (HC)Ryan berrios has no worsening of her symptoms of Sjogren's at this visit Adult [facility] th examination [id number] Z00.00 routine labs [id number] ZORAIDA I[facility] [address] [place] [address] 01/22/2025 09:02:23 01/22/2025 09:27:39 Systemic lupus erythematosus [id number] M32.9 01/22/25: requesting updated FMLA and 3 hrs for Luis Garnett OV 09/03/24: Has not been on saphnelo in 5 months since she moved to [facility]. C/o increased fatigue, rashes, arthralgia s, lymphadeno lea, dyspnea, raynauds, mouth sores, brain fog, loose stools. Will get additional labs, XR of hands, chest, spine, US of R hand. C/w hcq 200 mg BID and cellcept 1500 mg BID. Will try to get saphnelo restarted ALFONSO. In light of hemosidero sis on renal biopsy suggestive of chronic hemolysis, we added LDH, haptoglobi n, renato, G6PD deficiency . Rec'e yearly eye exams on hcq1 4: sent [facility] referral 08/28/24: can refer to [facility] once we have results of blood workreques ting FMLA- 2 days of work per week, 8 hrs per episode and 2 hrs for Luis love for 6 months at a time 06/30/24: diagnosed in 2019was receiving saphnelo infusions that controlled her lupusrefer to new Rheum OV 03/20/24 with Rheum in [place] 1. Rheumatoid arthritis involving multiple sites with positive rheumatoid factor (HC)Ryan berrios has no acute swelling of her joints at this visit. Patient has some deformitie s of her fingers related to her inflammato ry arthritis symptoms. Patient has good control of her inflammato ry arthritis with her current medication s. She will continue her current regimen of medication s for her autoimmune disorder. Ordered labs today2. Lupus nephritis, ISN/RPS class V (HC)Ryan berrios has no evidence of exacerbati ons of her nephritis noted at this visit. She is not currently having acute problems with her kidneys and she is seeing Dr Meliton Foster for her kidney care. Ordered labs today3. Raynaud's disease without gangrenePa cinthia has some evidence of damage to her fingers related to her Raynaud's disease. Patient states she has episodic occurrence of her raynaud's, and she is still avoids cold exposure to decrease exacerbati on of her Raynaud's. 4. Sjogren's syndrome with other organ involvemen t (HC)Ryan berrios has no worsening of her symptoms of Sjogren's at this visit Leukopenia [id number] D72. 819 printed off referral and encouraged pt to call to schedule apptre-rasta ck CBC Screening for malignant neoplasm of cervix [id number] Z12.4 will schedule Overweight [id number] E66 .3 BMI 28.5routin e labs Venereal d isease screening [id number] Z11.3 requesting STD screen Depression screening 171 [id number] Z13.31 2 Health Concerns Section Related Observation LastModified by Organization Detai ls LastModified Time None Recorded Concern Status LastModified by Organization Details LastModified Time None Recorded Advance Directives Directive None Recorded Payers Encounter Date Sequence Insurance Name Policy Number Policy Hooker Covered Member ID Hooker Member ID Guarantor Name 10/05/2016 1 [facility] [id number] Marquita Orantes [id number] Amanda rutherford 11/22/2016 1 [facility] [id number] Marquita Orantes [id number] Amanda rutherford 06/30/2024 1 [employer] [id number] Amanda Felton [id number] Amanda rutherford 08/28/2024 1 [employer] [id number] Amanda Felton [id number] Amanda rutherford 01/22/2025 1 [employer] [id number] Amanda Felton [id number] Amanda rutherford 01/22/2025 2 [facility] (MEDICAID HMO) [id number] Amanda Felton [id number] Amanda rutherford Notes Date Note Type Note Provider Name and Address Organization Details Recorded Time 10/05/2016 text/html Annual GYNReport ed bypatient.Menstrua l cycle:Bleeding between periods; 4-5 months out of the year and only light spotting Urinary symptoms:No hematuria; No incontinence Vulva:No genital lesion Vagina:Normal vaginal discharge Breast:No breast pain; No breast lump; No nipple discharge Current Contraception:Tuba l ligation; not happy she had BTL, not wanting more children, her does, she just thinks it has caused other issues--see above Sexual complaints:No pain during intercourse; Normal libido; spotting after intercourse occasionally Menopausal Symptoms:No menopausal symptoms; Normal vaginal lubrication Psychological symptoms:No depression; No anxiety; No PMDD Preventive measures:Encourage self breast examination; Encourage regular exercise Here for annual exam--concerned that the tubal ligation has caused mental issues-forgetfulne ss, intermittent abdominal pains incl upper pain once on left, suprapubic cramping and frequent cycles Jude Amado [facility] 10/05/2016 17:44:06 11/22/2016 text/html Comes today to establish care with provider. Patient states for the past one year has been having irregular cycles, mood swings since having a tubal ligation. 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 Patient states has been feeling little depressed and withdrawn but states she does go out with her friends. Denies suicidal ideations. Patient denies anxiety. Denies family history of mental illness. Also, patient would like to have blood work checked for possible allergies as she has noticed waking up in the morning with her eyes and lips swollen. Denies change in foods, facial wash or moisturizer. Patient denies throat closing or hives. Patient also states has one bowel movement daily and has been increasing water and fiber intake. Denies straining to have a bowel movement. Denies stools being hard. ROSE Falcon Attn: Accounting,[address] [place], [address], [facility] 11/22/2016 15:45:01 06/30/2024 text/html Pt presents to establish care as a new patient. She moved from [facility] to [place] 3 months ago. H/o RA, lupus, and raynaud's. States that she was previously on IV infusions of saphnelo which controlled her lupus symptoms. Reports that lupus flares consist of body aches, itching to upper extremities, rash, joint pain, chills, and fatigue. Requesting referral to new Fleet Coordinator. Denies fever, chest pain, SOB, n/v/d, abd pain, dizziness, weakness, or headaches. ZORAIDA IYER Attn: Accounting,[address] [facility], [place], [address], [place] [facility] 07/01/2024 08:32:56 08/28/2024 text/html Pt presents to discuss FMLA paperwork for lupus. 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 She is requesting intermittent leave from work at maximum 2 days per week, 8 hrs per episode due to brain fog associated with lupus. Pt also needs 2 hrs for Drs appts every 3-6 months or as needed for specialist. ZORAIDA IYER Attn: Accounting,[address] [facility], [place], [address], [facility] - [facility] 08/30/2024 15:46:04 01/22/2025 text/html Pt presents for 6 mo f/u and FMLA paperwork. She is established with [facility]. Last office visit 08/2024. ZORAIDA IYER Attn: Accounting,[address] [facility], [place], [address], [place] [facility] 01/24/2025 21:58:22 OBGyn Episode Ob Episode Information Episode Created Date Number of Fetuses Patient Bloodtype Patient rh Status Prepregnancy Weight lbs Domestic Partner Domestic Partner Phone Father Name Open Shank Coverer Status 12/14/19 15 1 CLOSED Fetus Data First Name Last Name Admitted to NICU Weight (g) Sex Living Outcome Pediatric Complications Fetus ID Race Codes Race Delivery Type 3202.35 952 M Full Term 27264 Repeat Giorgi Calculation Initial Giorgi Date Initial Exam Date Initial Exam Provider Initial Ultrasound Date Last Menstrual Period Date Ultra Sound Weeks Gestation 0 Eighteen To Twenty Week Giorgi Update Ultra Sound Date Fundal Height At Umbil Quickening Date Ultra Sound Latest Weeks Gestation Final Giorgi Confirmed By Final Giorgi Confirmed Date Final Giorgi Date Ultra Sound Latest Days Gestation 0 0 Menstrual History Last Menstrual Date Menses Monthly On Bcp Conception Prior Menses Frequency Hcg Plus Date Menarche Onset Age Delivery Information Delivery Date Delivery Type Labor Anesthesia Weeks Gestation Incision Type Labor Labor Length Hrs Delivered By Post Complications Tubal Sterilization Discharge Date Comments 3 Regional-Sp inal 39 false TTN Discharge Information Feeding Method Contraceptive Method Maternal HG B and HCT Levels Ob Episode Information Episode Created Date Number of Fetuses Patient Bloodtype Patient rh Status Prepregnancy Weight lbs Domestic Partner Domestic Partner Phone Father Name Open Shank Coverer Status 12/14/19 15 1 CLOSED Fetus Data First Name Last Name Admitted to NICU Weight (g) Sex Living Outcome Pediatric Complications Fetus ID Race Codes Race Delivery Type 3374.72 448 F Full Term 03857 Repeat Giorgi Calculation Initial Giorgi Date Initial Exam Date Initial Exam Provider Initial Ultrasound Date Last Menstrual Period Date Ultra Sound Weeks Gestation 0 Eighteen To Twenty Week Giorgi Update Ultra Sound Date Fundal Height At Umbil Quickening Date Ultra Sound Latest Weeks Gestation Final Giorgi Confirmed By Final Giorgi Confirmed Date Final Giorgi Date Ultra Sound Latest Days Gestation 0 0 Menstrual History Last Menstrual Date Menses Monthly On Bcp Conception Prior Menses Frequency Hcg Plus Date Menarche Onset Age Delivery Information Delivery Date Delivery Type Labor Anesthesia Weeks Gestation Incision Type Labor Labor Length Hrs Delivered By Post Complications Tubal Sterilization Discharge Date Comments 5 Regional-Sp inal 39 false +PPTL Discharge Information Feeding Method Contraceptive Method Maternal HG B and HCT Levels Ob Episode Information Episode Created Date Number of Fetuses Patient Bloodtype Patient rh Status Prepregnancy Weight lbs Domestic Partner Domestic Partner Phone Father Name Open Shank Coverer Status 12/14/19 15 1 CLOSED Fetus Data First Name Last Name Admitted to NICU Weight (g) Sex Living Outcome Pediatric Complications Fetus ID Race Codes Race Delivery Type 3714.91 848 M Full Term [id number] Giorgi Calculation Initial Giorgi Date Initial Exam Date Initial Exam Provider Initial Ultrasound Date Last Menstrual Period Date Ultra Sound Weeks Gestation 0 Eighteen To Twenty Week Giorgi Update Ultra Sound Date Fundal Height At Umbil Quickening Date Ultra Sound Latest Weeks Gestation Final Giorgi Confirmed By Final Giorgi Confirmed Date Final Giorgi Date Ultra Sound Latest Days Gestation 0 0 Menstrual History Last Menstrual Date Menses Monthly On Bcp Conception Prior Menses Frequency Hcg Plus Date Menarche Onset Age Delivery Information Delivery Date Delivery Type Labor Anesthesia Weeks Gestation Incision Type Labor Labor Length Hrs Delivered By Post Complications Tubal Sterilization Discharge Date Comments 9 Regional-Sp inal 41 false Discharge Information Feeding Method Contraceptive Method Maternal HG B and HCT Levels
[2025-01-30 14:15] LABS: Basophils Percent Auto 0.3 % (0.2-1.2); Eosinophils Percent Auto 0.6 % (0-4.4); Hematocrit 23.7 % (37.0-47.0); Hemoglobin 7.2 g/dL (12.0-15.0); Immature Granulocyte Absolute 0.02 K/mm3 (0.00-0.031); Immature Granulocyte Percent A 0.3 % (0-0.5); Lymphocytes Absolute Auto 2.43 K/mm3 (0.9-3.2); Lymphocytes Percent Auto 38.4 % (18.3-44.2); Mean Corpuscular HGB Conc 30.4 g/dl (32-36); Mean Corpuscular Volume 88.8 fl (80-100); Monocytes Absolute Auto 0.4 K/mm3 (0.1-0.6); Monocytes Percent Auto 6.2 % (2.6-8.5); Neutrophils Absolute Auto 3.4 K/mm3 (1.3-6.7); Neutrophils Percent Auto 54.2 % (45.5-73.1); Platelet Count Result 222 k/mm3 (150-375); Red Blood Count 2.67 M/mm3 (4.2-5.4); Red Cell Distribution Width 24.7 % (11.5-14.5); White Blood Count 6.3 K/mm3 (4.5-10.0)
--- NOTE | 2025-01-30 14:26 | ECG_ITS ---
Test Date: 2025-01-30 14:57:02 Measurements Intervals [place] Rate: 76 P: 2 [place]: 142 QRS: 54 QRSD: 92 T: -10 QT: 415 QTc: 469 Interpretive Statements SINUS RHYTHM NONSPECIFIC T-WAVE ABNORMALITY ABNORMAL ECG No previous ECG available for comparison Electronically Signed On 01-30-2025 15:44:34 CDT by Carlos Rao M.D.
--- NOTE | 2025-01-30 14:26 | ED_ITS ---
HPI - Recheck/Abnormal Lab/Rx General Chief Complaint: Recheck/Abnormal Lab/Rx Stated Complaint: NEEDS BLOOD TRASNFUSION Time Seen by Provider: 01/30/25 13:18 Source: patient and old records reviewed Mode of arrival: ambulatory Limitations: no limitations History of Present Illness HPI narrative: Patient is a 39-year-old female, with past medical history of SLE on Hydroxychloroquine and Mycophenolate, who presents to the ED with c/o low hemoglobin. Patient reports she had routine blood work drawn last week and was told her hemoglobin was low into the uppers 6 level. She was sent here for blood transfusion. She notes history of anemia related to her lupus, but states she normally ranges in the 7 range. Has not required blood transfusions in the past. Reports she has been feeling increasingly weak and fatigued recently. Reports some shortness of breath, but states this is fairly typical for her. She denies chest pain. Denies dizziness or lightheadedness. Denies abdominal pain, rectal bleeding, melena, epistaxis, heavy vaginal bleeding. Related Data Allergies Allergy/AdvReac Type Severity Reaction Status Date / Time No Known Allergies Allergy Verified 01/30/25 13:37 Review of Systems 2 Review of Systems: All systems reviewed & are unremarkable except as noted in HPI. All systems reviewed & are unremarkable except as noted in HPI and below Exam 2 Narrative: GENERAL: Well appearing, well-nourished, non-toxic, in no acute distress. HEAD: Normocephalic, atraumatic. RESPIRATORY: Airway patent, respirations nonlabored. Clear to auscultation bilaterally, no rales, rhonchi, wheezing. No focal lung sounds. CARDIOVASCULAR: Regular rate and rhythm without murmurs, rubs, or gallops. MUSCULOSKELETAL: Moves all extremities. No gross deformities. SKIN: Warm, dry, normal color. Diffuse rash to arms, face, chest. NEURO: A&O X3. Speech clear. PSYCHIATRIC: Appropriate mood and affect. Normal interaction. Course Vital Signs Vital signs: Vital Signs Respiratory Rate 17 01/30/25 13:40 Pulse Oximetry 98 01/30/25 13:40 Temperature 98.4 F 01/30/25 18:19 Pulse Rate 78 01/30/25 18:19 Respiratory Rate 17 01/30/25 18:19 Blood Pressure 103/65 01/30/25 18:19 Pulse Oximetry 100 01/30/25 18:19 MDM - Recheck/Abnormal Lab/Rx MDM Narrative Medical decision making narrative: Patient presented to ED with report of low hemoglobin on recent outpatient labs. History of lupus and chronic anemia. Denies any recent bleeding. Does endorse fatigue and generalized weakness. Vital signs are stable upon arrival. Patient is in no acute distress. Laboratory studies show hemoglobin of 7.2. Normocytic with an MCV of 88. Hematocrit 23.7. No records to compare to. Platelets are within normal range. No leukocytosis or leukopenia. CMP with bicarb at 16, minimal anion gap of 13. Normal blood glucose. Creatinine 1.58. Again no records to compare to. Patient given fluids in the ED. Likely related to dehydration. Patient declined chest x-ray. She was reporting some mild shortness breath with exertion, but states this is no different than her usual. Patient denies any recent bleeding, rectal bleeding, melena. I did discuss performing JESSICA to rule out GI bleeding, however patient declined. She states she will follow-up with her doctor for this. Patient's blood type is B-positive. No antibiotics. Given that patient is acutely symptomatic with borderline hemoglobin, will give 1 unit prbc. Anemia labs were added on. Elevated reticulocyte percentage and absolute reticulocyte count. % iron saturation slightly low, but normal iron, TIBC, transferrin, ferritin. Normal B12 and folate. Likely anemia of chronic disease. Patient has a follow-up appointment with her service coordinator elderly facility in a couple of weeks. I feel she is safe for discharge home at this time after receiving 1 unit blood transfusion with close outpatient follow-up. Patient is in agreement this plan. She feels comfortable with discharge home. Discussed strict return precautions. 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 Will be provided with Dr. Diaz's information. Again emphasized strict return precautions. Patient voiced understanding. Discharged in stable condition. Remained hemodynamically stable at time of D/C Medical Records Attestation: I reviewed the patient's medical records. Lab Data Attestation: I reviewed the patient's lab results. 01/30/25 14:10 01/30/25 14:10 Labs: Lab Results 01/30/25 01/30/25 Range/Units 14:10 15:03 WBC 6.3 (4.5-10.0) K/mm3 RBC 2.67 L (4.2-5.4) M/mm3 Hgb 7.2 L (12.0-15.0) g/dL Hct 23.7 L (37.0-47.0) % MCV 88.8 (80-100) fl MCH 27.0 (26-34) pg MCHC 30.4 L (32-36) g/dl RDW 24.7 H (11.5-14.5) % Plt Count 222 (150-375) k/mm3 MPV 10.0 (7.4-10.4) fl Immature Gran % (Auto) 0.3 (0-0.5) % Neut % (Auto) 54.2 (45.5-73.1) % Lymph % (Auto) 38.4 (18.3-44.2) % [place] % (Auto) 6.2 (2.6-8.5) % Eos % (Auto) 0.6 (0-4.4) % Baso % (Auto) 0.3 (0.2-1.2) % Lymph # (Auto) 2.43 (0.9-3.2) K/mm3 [place] # (Auto) 0.4 (0.1-0.6) K/mm3 Eos # (Auto) 0.0 (0-0.3) K/mm3 Baso # (Auto) 0.0 (0.0-0.1) K/mm3 Abs Immat Gran (auto) 0.02 (0.00-0.031) K/mm3 Absolute Neuts (auto) 3.4 (1.3-6.7) K/mm3 Absolute Nucleated RBC 0.000 (0.0-0.012) K/mm3 Band Neutrophils % 0 (0-6) % Nucleated RBC % 0.0 (0.0-0.2) % Platelet Estimate Adequate (Adequate) Polychromasia 1+ Hypochromasia 1+ Anisocytosis 3+ Schistocytes None seen Absolute Retic 0.21 H (0.02-0.10) 10^6/uL Percent Retic 8.86 H (0.7-4.3) % Immature Retic Fraction 29.4 H (3.0-15.9) % Retic Hgb Content 26.6 L (28.2-36.6) pg PT 14.1 (11.1-14.7) Seconds INR 1.0 APTT 28.3 (22.3-36.8) Seconds Sodium 138 (137-145) mmol/L Potassium 3.7 (3.4-5.0) mmol/L Chloride 109 H (98-107) mmol/L Carbon Dioxide 16 L (22-30) mmol/L Anion Gap 13 H (4-12) mmol/L BUN 14 (7-17) mg/dL Creatinine 1.58 H (0.7-1.0) mg/dL Estim Creat Clear Calc 45 ml/min Estimated GFR 37 L (59 - ) Glucose 83 (65-110) mg/dL Calcium 9.2 (8.4-10.2) mg/dL Iron 37 (37-170) ug/dL TIBC 380 (261-462) ug/dL % Saturation 10 L (20-50) % Transferrin 264 (206-381) mg/dL Ferritin 8.64 (6.24-137) ng/mL Lactate Dehydrogenase 346 H (120-246) U/L Vitamin B12 507.0 (239-931) pg/mL Folate 14.2 (2.76->20) ng/mL Blood Type B Positive Antibody Screen Negative Crossmatch See Detail ECG Data EKG #1: Attestation: I personally reviewed and interpreted this ECG as follows: ECG completion date: 01/30/25 ECG completion time: 14:57 EKG Interpretation: normal rate (76), sinus rhythm and non-specific ST changes Discharge Plan Discharge Clinical Impression: Symptomatic anemia, Dehydration Patient Disposition: Home, Self-Care Condition: Stable Instructions: Antibiotic Form, Iron Rich Diet (ED), Anemia (ED) Additional Instructions: Follow-up closely with your primary care doctor, service coordinator elderly facility, abattoir supervisor for further evaluation and management. Stay well hydrated. Return to ED if you experience worsening or severe weakness/fatigue, feeling very dizzy or lightheaded, passing out, chest pain, difficulty breathing, rectal bleeding, dark black stools, severe vaginal bleeding, unable to keep down food or drink, or any other symptoms of concern. Patient Language: Turkmen Follow-up/Referrals: Joe Diaz MD [Physician] - (HEMATOLOGY) Aman,ZORAIDA Cardenas [Primary Care Provider] - Time of Disposition: 17:47
[2025-01-30 14:28] LABS: Prothrombin Time 14.1 Seconds (11.1-14.7)
[2025-01-30 14:29] LABS: Partial Thromboplastin Time 28.3 Seconds (22.3-36.8)
[2025-01-30 14:33] LABS: Anion Gap 13 mmol/L (4-12); Blood Urea Nitrogen 14 mg/dL (7-17); Calcium 9.2 mg/dL (8.4-10.2); Carbon Dioxide 16 mmol/L (22-30); Chloride 109 mmol/L (98-107); Estimated CRCL calculation 45 ml/min; Estimated Glomerular Filt Rate 37; Glucose 83 mg/dL (65-110); Potassium 3.7 mmol/L (3.4-5.0); Sodium 138 mmol/L (137-145)
[2025-01-30 14:43] LABS: Platelet Estimate Adequate (Adequate)
[2025-01-30 14:44] LABS: Anisocytosis 3+; Hypochromasia 1+; Schistocytes None Seen
[2025-01-30 14:45] LABS: Band Neutrophils Percent 0 % (0-6)
[2025-01-30 14:46] LABS: Polychromasia 1+
[2025-01-30] MEDS: SODIUM CHLORIDE 0.9% IV 1,000 ML 999 ML IV CONT (14:49)
[2025-01-30 15:11] LABS: Immature Reticulocyte Fraction 29.4 % (3.0-15.9); Reticulocyte Hemoglobin Conten 26.6 pg (28.2-36.6); Reticulocyte Percent 8.86 % (0.7-4.3); Reticulocytes Absolute 0.21 10^6/uL (0.02-0.10)
[2025-01-30 15:26] LABS: Lactate Dehydrogenase 346 U/L (120-246)
[2025-01-30 15:34] LABS: Transferrin 264 mg/dL (206-381)
[2025-01-30 15:36] LABS: Iron 37 ug/dL (37-170)
[2025-01-30 15:45] LABS: Percent Iron Saturation 10 % (20-50)
[2025-01-30 16:12] LABS: Ferritin 8.64 ng/mL (6.24-137)
[2025-01-30 16:35] LABS: Folic Acid 14.2 ng/mL (2.76->20)
[2025-01-30] MEDS: TUBING, BLOOD SET 1 EACH XX (17:01)
[2025-01-30] MEDS: SODIUM CHLORIDE 0.9% IV 250 ML 30 ML IV CONT (17:01)
== END 2025-01-30 19:35 | disposition home or self-care (01) ==
PROVIDERS: Emergency Provider Physician Assistant; PCP Physician Assistant Medical
DX: M32.9 Systemic lupus erythematosus, unspecified (principal); D63.8 Anemia in other chronic diseases classified elsewhere; E86.0 Dehydration; R94.31 Abnormal electrocardiogram [ECG] [EKG]; Z79.69 Long term (current) use of other immunomodulators and immunosuppressants
CPT/HCPCS: 36415; 36430; 80048; 82607; 82728; 82746; 83540; 83550; 83615; 84466; 85025; 85046; 85610; 85730; 86850; 86900; 86901; 86923; 93005; 96360; 96361; 99285; J7030; J7050; P9016